=== PATIENT | male | born 1970 | race Two or more races ===

== ENCOUNTER 2023-07-01 11:03 | Emergency (ER) | payer OTHER, SELFPAY ==
[2023-07-01 11:06] VITALS: BP 137/66; PULSE 60; RESP 18; TEMP 36.2; O2SAT 99; BMI 25.4
[2023-07-01 11:37] VITALS: BP 125/75; PULSE 59; RESP 14; TEMP 36.9; O2SAT 97
--- NOTE | 2023-07-01 12:15 | ED.EYEPROB ---
HPI - Eye Problem General Chief complaint: Eye Problems Stated complaint: r eye issue Time Seen by Provider: 07/01/23 11:32 Source: patient Mode of arrival: ambulatory Limitations: no limitations History of Present Illness HPI Narrative: Patient is a 52-year-old male presenting to the emergency department with complaint of rash to face. States this is the 3rd day. Describes rash as pruritic as well as painful. Complains of erythema to right conjunctiva with watery drainage. Denies contact lens use. Denies any blurred vision or other visual changes. Report he has had shingles vaccine. Denies fevers, body ache or other symptoms. chief complaint: eye redness and other (rash) Onset (ago): day(s) Onset description: gradual Duration: constant Location: right eye Eye Symptoms: burning, redness, itching and discharge Place: home Mechanism: none Associated symptoms: none Treatments Prior to Arrival: none Related Data Previous Rx's Medication Instructions Recorded erythromycin 5 mg/gram (0.5 %) eye 1 appl ophthalmic-Right BID #3.5 07/01/23 ointment grams valacyclovir 1 gram tablet 1,000 mg PO TID #20 tabs 07/01/23 Allergies Allergy/AdvReac Type Severity Reaction Status Date / Time No Known Allergies Allergy Verified 07/01/23 11:10 Review of Systems Review of Systems: As per HPI. Yes all other systems are reviewed and are negative Constitutional: Constitutional: Reports as per HPI [facility] Social History Social History Advance Directives: No Advance Directives Information Provided: No Physical Exam Vital Signs: Vital Signs: Last Vital Signs Temp 98.4 F 07/01/23 11:37 Pulse 59 07/01/23 11:37 Resp 14 07/01/23 11:37 BP 125/75 07/01/23 11:37 Pulse Ox 97 07/01/23 11:37 O2 Del Method Room Air 07/01/23 11:37 BMI result Body Mass Index 25.4 Vital signs have been reviewed and appear to be correct. Blood pressure normal. Heart rate normal. Respiratory rate normal. Temperature normal. Oxygen saturation normal. Const: General: cooperative, healthy appearing and no acute distress Orientation/consciousness: oriented to person, oriented to place, oriented to time and patient oriented x3 Limitations: no limitations HEENT: Head: Yes normocephalic and Yes atraumatic Head images: 1. erythematous vesicles 2. clustered erythematous vesicles 3. erythematous vesicles Ears: external ears normal and EAC's normal (no lesions) General nose exam: Normal external nose present (no lesions) Face and sinus: Yes face symmetric Mouth: oropharynx normal and moist mucous membranes Throat: Yes uvula midline Eyes: Eyelids: Yes eyelids normal Conjunctivae: conjunctival abnormal right conjunctival injection diffuse and discharge other (watery) Corneas: corneas normal and fluorescein used Pupils: Equal, round and reactive pupils present EOM: EOMs intact bilaterally Neck: Neck: Yes normal visual inspection and Yes supple Resp: Effort & Inspection: normal respiratory effort and able to speak in complete sentences Auscultation: clear to auscultation bilaterally Cardio: Rate: regular rate Rhythm: regular rhythm Heart sounds: S1 normal heart sound present and S2 normal heart sound present GI: Palpation (GI): Soft to palpation and nontender Auscultation: normoactive bowel sounds : General: Yes no CVA tenderness Back/Spine/Pelvis: Back: no CVA tenderness Skin: General skin exam: elasticity normal and turgor normal Rashes: rashes noted vesicles right anterior forehead size (1cm), arrangement clustered, color red and distribution (V1) Neuro: General: oriented to person, oriented to place, oriented to time, patient oriented x3, moves all extremities, no focal motor deficits and CN's II-XI intact bilaterally Cranial nerves: Yes Equal, round and reactive pupils present Cognition (Neuro): normal cognition Extrem: General: Yes full ROM, Yes no pedal edema and Yes no calf tenderness Psych: Mental Status: mental status grossly normal Affect: normal affect Thought process: Normal thought process present Medications Administered Discontinued Medications Generic Name Dose Route Start Last Admin Trade Name Daysi PRN Reason Stop Dose Admin Fluorescein Sodium 1 strip 07/01/23 12:19 07/01/23 12:27 Fluorescein Sodium Strip EYE-RIGHT 07/01/23 12:20 1 strip ONCE ONE Administration Medical Decision Making Medical Decision Making [facility] Narrative: Patient is a 52-year-old male presenting to the emergency department with complaint of rash to face. On exam patient is awake, A+Ox3, VS WNL, afebrile, normal neurological exam without focal deficits, physical exam findings as above. Given reported symptoms and physical exam findings, initial differential includes herpes zoster vs herpes zoster opthalmicus, conjunctivitis. No dendritic lesions noted on [place] lamp exam with fluorescein stain. Case discussed with Dr. Decker and Dr. Hendrickson. Dr. Hendrickson recommends treatment with valacyclovir, as well as erythromycin ointment to lesion on right upper eyelid to prevent any secretions from entering the eye. Will refer patient to Dr. Hendrickson for follow up. Strict return precautions discussed at bedside as well as precautions around women, infants, the immunocompromised, or anyone who has not had chickenpox/shingles or vaccine. Patient verbalized understanding of and agreement with plan. Differential Diagnosis Differential Diagnoses: The differential diagnosis associated with the presentation includes As per MDM Consult Healthcare Provider Management of the patient was discussed with: Stock Unloader (Dr. Hendrickson, clinic supervisor) External Record Review External record reviewed: Inpatient record, Office record and Outpatient record Prescription Management I considered prescription management with: Antiviral Discharge Plan Discharge Clinical Impression: Herpes zoster Patient Disposition: Home, Self-Care Instructions: Shingles (ED) Additional Instructions: You were evaluated in the emergency department today for a rash to your face which is consistent with herpes zoster, also known as shingles. You are being prescribed antiviral medication called valacyclovir, please complete the full course of this medication as prescribed. You are also being prescribed erythromycin ointment to apply to the lesion on your right upper eyelid to prevent any drainage of fluid in to your eye. You should follow-up with , who is an clinic supervisor, as soon as possible. You should also follow-up with your primary care provider this week. Return to the emergency department if you develop blurred vision, double vision or any other changes to your vision, increasing eye pain, fevers 100.4? F or greater, chest pain, shortness of breath or any other concerning symptoms. Prescriptions: New valacyclovir 1 gram tablet 1,000 mg PO TID Qty: 20 0RF Rx Instructions: You were given the first dose in the emergency department today. Please take the next dose this evening. erythromycin 5 mg/gram (0.5 %) ointment 1 appl ophthalmic-Right BID Qty: 3.5 0RF Rx Instructions: Apply to lesion on right upper eyelid. Referrals: Arie Hendrickson [Physician] -
[2023-07-01] MEDS: Fluorescein Sodium STRIP 1 STRIP EYE-RIGHT (12:27)
[2023-07-01] MEDS: valACYclovir HCL 1,000 MG TABLET 1000 MG PO (13:11)
== END 2023-07-01 13:21 | disposition home or self-care (01) ==
PROVIDERS: Emergency Provider Student in an Organized Health Care Education/Training Program
DX: B02.30 Zoster ocular disease, unspecified (principal)
CPT/HCPCS: 99283

== ENCOUNTER 2024-04-08 08:27 | Emergency (ER) | payer OTHER, SELFPAY ==
--- NOTE | ~2024-04-08 | CT_ITS ---
EXAMINATION: CT ABDOMEN AND PELVIS WITH CONTRAST CLINICAL INFORMATION: Upper abdominal pain with question of pancreatic mass COMPARISON: None available. TECHNIQUE: Multidetector volumetric images were obtained from the superior aspect of the liver through the pubic symphysis following administration 85 mL of Omnipaque 350 intravenous contrast. Sagittal and coronal reformatted images were obtained on the technologist's workstation. Oral contrast: No This CT examination was performed using dose optimization techniques as appropriate, variously including the following: *Automated exposure control *Adjustment of mA and/or kV according to patient size (this includes techniques or standardized protocols for targeted exams where dose is matched to indication/reason for exam; i.e. extremities or head) *Use of iterative reconstruction technique DLP: 395 mGy-cm FINDINGS: LUNG BASES: The visualized lung bases are unremarkable aside from bronchial thickening. LIVER, GALLBLADDER, AND BILIARY TREE: The liver is normal in size, shape, and attenuation. Tiny millimeter sized hepatic hypodensities are seen likely cysts but are indeterminate because of their small size. No concerning focal hepatic lesion or biliary ductal dilatation is present. The gallbladder is completely contracted with no evidence of radiopaque gallstones or obvious pericholecystic inflammatory changes. PANCREAS: Unremarkable. SPLEEN: Unremarkable. ADRENAL GLANDS: Unremarkable. KIDNEYS AND URETERS: The kidneys are normal in size, shape, and attenuation. No hydronephrosis, hydroureter, or calculi seen. No perinephric stranding. BLADDER: Unremarkable. GASTROINTESTINAL TRACT: The small and large bowel are unremarkable. The appendix is unremarkable. ABDOMINAL WALL: No significant hernia is appreciated. LYMPH NODES: Normal. VASCULAR: Unremarkable. PELVIC VISCERA: There is mild to moderate BPH. Seminal vesicles appear normal OSSEOUS STRUCTURES: Unremarkable. CT/CT abdomen pelvis w IV con IMPRESSION: 1. A cause for the patient's upper abdominal pain has not been found. 2. Incidental note made of bronchial thickening, tiny hepatic hypodensities likely cysts, contracted gallbladder and BPH. Fleischner guidelines were followed. Electronically signed by: John Bedolla MD 04/08/2024 09:56 PM EDT
[2024-04-08 08:34] VITALS: BP 125/83; PULSE 62; RESP 18; TEMP 36.4; O2SAT 95; BMI 24.5
--- NOTE | 2024-04-08 08:37 | ECG_ITS ---
Test Reason : abd pain Blood Pressure : / mmHG Vent. Rate : 055 BPM Atrial Rate : 055 BPM P-R Int : 144 ms QRS Dur : 082 ms QT Int : 376 ms P-R-T Axes : 067 012 -22 degrees QTc Int : 359 ms Sinus bradycardia Possible Left atrial enlargement Septal infarct , age undetermined T wave abnormality, consider inferior ischemia Abnormal ECG No previous ECGs available Referred By: Generic ED Physician Electronically Signed By:TAMI MEHTA
[2024-04-08 09:07] LABS: MANUAL DIFF FLAG NO
[2024-04-08 09:11] LABS: Basophils Percent Auto 1.3 % (0-2); Eosinophils Absolute Auto 0.1 X10*3/uL (0.0-0.4); Eosinophils Percent Auto 3.2 % (0-4); Hemoglobin 16.4 g/dl (14.0-18.0); Imm Gran Abs Auto 0.01 X10*3/uL (0.00-0.03); Imm Gran Pct Auto 0.3 % (0.0-0.4); Lymphocytes Absolute Auto 1.2 X10*3/uL (1.2-4.9); Lymphocytes Percent Auto 39.7 % (20-40); Mean Corpuscular HGB Conc 34.9 g/dl (31.0-36.0); Mean Corpuscular Hemoglobin 30.9 pg (27.0-33.0); Mean Corpuscular Volume 88.7 fL (80.0-98.0); Mean Platelet Volume 9.8 fL (9.4-12.4); Monocytes Absolute Auto 0.4 X10*3/uL (0.1-1.2); Monocytes Percent Auto 12.6 % (2-11); Neutrophils Absolute Auto 1.3 x10*3/uL (2.0-8.3); Neutrophils Percent Auto 42.9 % (45-73); Platelet Count 209 X10*3/uL (160-400); White Blood Count 3.1 X10*3/uL (4.8-10.8)
[2024-04-08 09:26] LABS: Alanine Aminotransferase 26 U/L (0-40); Albumin Level 4.1 g/dL (3.5-5.0); Alkaline Phosphatase 72 U/L (39-117); Anion Gap 9 (12-20); Aspartate Amino Transferase 20 U/L (5-37); Bilirubin Direct 0.2 mg/dL (0.0-0.5); Bilirubin Total 0.6 mg/dL (0.0-1.0); Blood Urea Nitrogen 13 mg/dL (9-16); Calcium 9.6 mg/dL (8.4-10.2); Carbon Dioxide 28 mmol/L (22-29); Chloride 107 mmol/L (96-108); Creatinine Clr Calc Pharmacy 76.6; Estimated Glomerular Filt Rate > 60; Glucose Random 96 mg/dL (60-115); Lipase 31 U/L (8-78); Potassium 4.3 mmol/L (3.3-5.1); Sodium 140 mmol/L (135-145); Total Protein 6.6 g/dL (6.5-8.0)
[2024-04-08 19:21] VITALS: BP 135/75; PULSE 57; RESP 18; TEMP 36.2; O2SAT 99
--- NOTE | 2024-04-08 19:23 | ED_ITS ---
HPI - Abdominal Pain General Chief Complaint: Abdominal Pain Stated Complaint: Upper abd pain Time Seen by Provider: 04/08/24 19:21 Source: patient Mode of arrival: ambulatory Limitations: no limitations History of Present Illness ED Provider: wilfrid SLATER narrative: Patient no significant past medical history no history of peptic ulcer disease noticed pain in the upper abdomen area for last 1 week with bloating in his feels full does not feel hungry but no relation of the pain to the food no radiation of the pain no nausea no vomiting no diarrhea no family history of any pancreatic cancer Related Data Previous Rx's ?Medication ?Instructions ?Recorded erythromycin 5 mg/gram (0.5 %) eye 1 appl ophthalmic-Right BID #3.5 07/01/23 ointment grams valacyclovir 1 gram tablet 1,000 mg PO TID #20 tabs 07/01/23 pantoprazole 40 mg tablet,delayed 40 mg PO DAILY #30 tabs 04/08/24 release (Protonix) Allergies Allergy/AdvReac Type Severity Reaction Status Date / Time No Known Allergies Allergy Verified 04/08/24 08:36 Review of Systems Review of Systems Yes all other systems are reviewed and are negative PMFSH Social History Social History Smoked in Last 30 Days: No Use of substances other than those prescribed or required for medical reasons: No Advance Directives: No Advance Directives Information Provided: No Physical Exam ED Vital Signs: Vital Signs - 24 hr 04/08/24 08:34 04/08/24 19:21 04/08/24 22:56 Temperature 97.5 F 97.2 F 98.5 F Pulse Rate 62 57 56 Respiratory Rate 18 18 17 Blood Pressure 125/83 135/75 128/69 Pulse Oximetry 95 99 98 Oxygen Delivery Method Room Air Room Air Room Air 04/09/24 00:06 Temperature 98.5 F Pulse Rate 56 Respiratory Rate 17 Blood Pressure 128/69 Pulse Oximetry 98 Oxygen Delivery Method Room Air BMI result Body Mass Index 24.5 Appearance: Alert. Oriented X3. No acute distress. Eyes: No icterus or pallor ENT: Pharynx normal. Oral Mucosa moist Neck: Normal inspection. Neck supple. CVS: Normal heart rate and rhythm. Pulses normal. Respiratory: No respiratory distress. Equal air entry bilateral, no wheezing/rales/rhonchi Abdomen: Soft and tenderness in epigastric area no guarding no rebound tenderness Bowel sounds are present, no mass palpable, no CVA tenderness Skin: Skin warm and dry. Normal skin color. Normal skin turgor. Extremities: No lower extremity edema. No calf tenderness Neuro: Oriented X 3. Medical Decision Making Medical Decision Making [facility] Narrative: Patient with upper abdominal pain CT scan was done to rule out pancreatic mass which was negative will discharge patient home on H2 leonel likely patient has peptic ulcer disease advised to follow with blast furnace keeper helper Differential Diagnosis Differential Diagnoses: The differential diagnosis associated with the presentation includes Gallstones/pancreatic mass/pancreatitis/diverticulitis/hiatal hernia/peptic ulcer disease Admission/Observation Consideration of admission/observation: Escalation of care including admission/observation considered Lab Data [facility] Lab Attestation statement: I reviewed the patient's lab results. 04/08/24 09:03 04/08/24 09:03 Labs: Lab Results 04/08/24 Range/Units 09:03 WBC 3.1 L (4.8-10.8) X10*3/uL RBC 5.30 (4.60-5.80) X10*6/uL Hgb 16.4 (14.0-18.0) g/dl Hct 47.0 (42.0-52.0) % MCV 88.7 (80.0-98.0) fL MCH 30.9 (27.0-33.0) pg MCHC 34.9 (31.0-36.0) g/dl RDW 12.0 (11.0-16.0) % Plt Count 209 (160-400) X10*3/uL MPV 9.8 (9.4-12.4) fL Immature Gran % (Auto) 0.3 (0.0-0.4) % Neut % (Auto) 42.9 L (45-73) % Lymph % (Auto) 39.7 (20-40) % [place] % (Auto) 12.6 H (2-11) % Eos % (Auto) 3.2 (0-4) % Baso % (Auto) 1.3 (0-2) % Lymph # (Auto) 1.2 (1.2-4.9) X10*3/uL [place] # (Auto) 0.4 (0.1-1.2) X10*3/uL Eos # (Auto) 0.1 (0.0-0.4) X10*3/uL Baso # (Auto) 0.0 (0.0-0.2) X10*3/uL Abs Immat Gran (auto) 0.01 (0.00-0.03) X10*3/uL Absolute Neuts (auto) 1.3 L (2.0-8.3) x10*3/uL Absolute Nucleated RBC 0.000 (0.0-0.012) X10*3/uL Nucleated RBC % (auto) 0.0 (0.0-0.2) /100WBC Sodium 140 (135-145) mmol/L Potassium 4.3 (3.3-5.1) mmol/L Chloride 107 (96-108) mmol/L Carbon Dioxide 28 (22-29) mmol/L Anion Gap 9 L (12-20) BUN 13 (9-16) mg/dL Creatinine 0.97 (0.5-1.4) mg/dL Estim Creat Clear Calc 76.6 Estimated GFR > 60 Random Glucose 96 (60-115) mg/dL Calcium 9.6 (8.4-10.2) mg/dL Total Bilirubin 0.6 (0.0-1.0) mg/dL Direct Bilirubin 0.2 (0.0-0.5) mg/dL AST 20 (5-37) U/L ALT 26 (0-40) U/L Alkaline Phosphatase 72 (39-117) U/L Total Protein 6.6 (6.5-8.0) g/dL Albumin 4.1 (3.5-5.0) g/dL Lipase 31 (8-78) U/L Independent Interpretation I performed an independent interpretation of an: CT Scan Radiology Impression Discussion of test interpretation with radiology: I have reviewed the radiologist's reading. Radiologist Impression: [address] [address] [address] Scan Report Signed Patient: Michael Murphy MR#: [id number] : 1970 Acct:[id number] Age/Sex: 53 / M ADM Date: 04/08/24 Loc: HO.ED Attending Dr: Ordering Physician: Francesco Morris MD Date of Service: 04/08/24 Procedure(s): CT abdomen pelvis w IV con Accession Number(s): [id number] cc: Physician,None ; Francesco Morris MD~ EXAMINATION: CT ABDOMEN AND PELVIS WITH CONTRAST CLINICAL INFORMATION: Upper abdominal pain with question of pancreatic mass COMPARISON: None available. TECHNIQUE: Multidetector volumetric images were obtained from the superior aspect of the liver through the pubic symphysis following administration 85 mL of Omnipaque 350 intravenous contrast. Sagittal and coronal reformatted images were obtained on the technologist's workstation. Oral contrast: No This CT examination was performed using dose optimization techniques as appropriate, variously including the following: *Automated exposure control *Adjustment of mA and/or kV according to patient size (this includes techniques or standardized protocols for targeted exams where dose is matched to indication/reason for exam; i.e. extremities or head) *Use of iterative reconstruction technique DLP: 395 mGy-cm FINDINGS: LUNG BASES: The visualized lung bases are unremarkable aside from bronchial thickening. LIVER, GALLBLADDER, AND BILIARY TREE: The liver is normal in size, shape, and attenuation. Tiny millimeter sized hepatic hypodensities are seen likely cysts but are indeterminate because of their small size. No concerning focal hepatic lesion or biliary ductal dilatation is present. The gallbladder is completely contracted with no evidence of radiopaque gallstones or obvious pericholecystic inflammatory changes. PANCREAS: Unremarkable. SPLEEN: Unremarkable. ADRENAL GLANDS: Unremarkable. KIDNEYS AND URETERS: The kidneys are normal in size, shape, and attenuation. No hydronephrosis, hydroureter, or calculi seen. No perinephric stranding. BLADDER: Unremarkable. GASTROINTESTINAL TRACT: The small and large bowel are unremarkable. The appendix is unremarkable. ABDOMINAL WALL: No significant hernia is appreciated. LYMPH NODES: Normal. VASCULAR: Unremarkable. PELVIC VISCERA: There is mild to moderate BPH. Seminal vesicles appear normal OSSEOUS STRUCTURES: Unremarkable. CT/CT abdomen pelvis w IV con IMPRESSION: 1. A cause for the patient's upper abdominal pain has not been found. 2. Incidental note made of bronchial thickening, tiny hepatic hypodensities likely cysts, contracted gallbladder and BPH. Fleischner guidelines were followed. Electronically signed by: John Bedolla MD 04/08/2024 09:56 PM EDT Medications Administered Discontinued Medications Generic Name Dose Route Start Last Admin Trade Name Daysi PRN Reason Stop Dose Admin Famotidine 20 mg 04/08/24 20:10 04/08/24 20:56 Famotidine/Pf 20 Mg/2 Ml Vial IVPUSH 04/08/24 20:11 20 mg ONCE ONE Administration Sodium Chloride 1,000 mls @ 999 mls/hr 04/08/24 20:10 04/08/24 20:56 Ns IV 04/08/24 21:10 999 mls/hr .Q1H1M ONE Administration Iohexol 85 ml 04/08/24 20:47 04/08/24 20:48 Iohexol 350 Mg/Ml 100 Ml Infus..Btl IV 04/08/24 20:48 85 ml ONCE ONE Administration Discharge Plan Discharge Clinical Impression: Abdominal pain Patient Disposition: Home, Self-Care Instructions: Abdominal Pain (ED) Additional Instructions: Abdominal pain is likely from gastritis Your CT scan is negative for acute pathology Start taking Protonix as prescribed Follow with blast furnace keeper helper and PCP Prescriptions: New pantoprazole [Protonix] 40 mg tablet,delayed release (DR/EC) 40 mg PO DAILY Qty: 30 0RF No Action valacyclovir 1 gram tablet 1,000 mg PO TID Qty: 20 0RF Rx Instructions: You were given the first dose in the emergency department today. Please take the next dose this evening. erythromycin 5 mg/gram (0.5 %) ointment 1 appl ophthalmic-Right BID Qty: 3.5 0RF Rx Instructions: Apply to lesion on right upper eyelid. Referrals: Cindi Landers MD [Physician] - 2 weeks Interventions: ED Discharge Assessment Last Done: 04/09/24 00:06 Discharge Date/Time: 04/09/24 00:07 Print Language: Luxembourgish
[2024-04-08] MEDS: iohexoL 350 MG/ML 100 ML INFUS..BTL 85 ML IV (20:48)
[2024-04-08] MEDS: Famotidine/PF 20 MG/2 ML VIAL IVPUSH (20:56)
[2024-04-08] MEDS: 0.9 % Sodium Chloride 1,000 ML 999 ML IV (20:56)
[2024-04-08 22:56] VITALS: BP 128/69; PULSE 56; RESP 17; TEMP 36.9; O2SAT 98
[2024-04-09 00:06] VITALS: BP 128/69; PULSE 56; RESP 17; TEMP 36.9; O2SAT 98
== END 2024-04-09 00:07 | disposition home or self-care (01) ==
PROVIDERS: Emergency Provider Internal Medicine
DX: R10.10 Upper abdominal pain, unspecified (principal); Z79.899 Other long term (current) drug therapy
CPT/HCPCS: 36415; 74177; 80048; 80076; 83690; 85025; 93005; 96374; 99284; Q9967

== ENCOUNTER 2024-09-02 10:21 | Outpatient (AMB) | payer OTHER, SELFPAY ==
--- NOTE | 2024-09-02 10:26 | A.OFFPC_ITS ---
Vital Signs 09/02/24 10:28 Height 5 ft 3.39 in Weight 152 lb 8 oz BMI 26.7 BP 120/78 Blood Pressure Location Lt brachial Position Sitting Pulse 58 Pulse Source Pulse Oximeter Temp 97.9 F Temp Source Temporal Artery Scan Pulse Oximetry (%) 98 Oxygen Delivery Method Room Air Intake Visit Reasons: New Patient Intake Note: Patient is a new patient here to establish care for Wellness visit. Transferring care from Dr Harris ([facility]), and [facility]. Medical records have been requested and have not received. Steward/Stewardess Room Required: No Interventional Radiologist: Not Required per policy Accompanied by: Self / Same As Patient Allergies No Known Allergies Allergy (Verified 09/02/24 10:44) Medication List - Last Reconciled 09/02/24 by Bacilio Benoit PA-C No Known Home Meds Tobacco use date assessed: 09/02/24 Dental Screening Dental Screen Date: 09/02/24 Did you have a dental visit in the last 12 months?: Yes Did you have a dental problem in the last 6 months where you did not have access to dental care?: No Was dental information given to patient?: Patient has dentist HPI New Patient HPI Details Patient is a 54-year-old male here today for new patient visit. Patient's previous PCP was at [facility] group. Horacio--> reports he intermittently has upper abdominal pain. He attributes this to stress. She did get a CT of his abdomen last year which did not show any significant masses or intra-abdominal pathology. He denies having any constipation, diarrhea or GERD like symptoms. Vaccine : declines flu vac, Colonoscopy : Has had 2 colonoscoies thus far due to his family history of colon cancer. 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 1. Little interest or pleasure in doing things: not at all 2. Feeling down, depressed, or hopeless: not at all 3. Trouble falling or staying asleep, or sleeping too much: not at all 4. Feeling tired or having little energy: not at all 5. Poor appetite or overeating: not at all 6. Feeling bad about yourself - or that you are a failure or have let yourself or your family down: not at all 7. Trouble concentrating on things, such as reading the newspaper or watching television: not at all 8. Moving or speaking so slowly that other people could have noticed. Or the opposite - being so fidgety or restless that you have been moving around a lot more than usual: not at all 9. Thoughts that you would be better off or of hurting yourself in some way: not at all Total score: 0 Depression Screening Interpretation: Negative Depression Screening Done: Yes 47974 - PHQ-9 Billing: Yes Source: Developed by Drs. Daryn Lewis, Mignon Lees, Tylor Sin and colleagues, with an educational chad from [employer]. Thrive Questionnaire Date Thrive assessed: 09/02/24 I am a: Patient What is your living situation today?: I have a steady place to live Within the past 12 months, did the food you bought not last and you didn't have the money to get more?: I choose not to answer this question Within the past 12 months, did you worry whether your food would run out before you got money to buy more?: Never true Do you have trouble paying for medicines?: No Do you have trouble getting transportation to medical appointments?: No Do you have trouble paying your heating and electricity bill?: No Do you have trouble taking care of your child, family member or friend?: Yes Do you have trouble with day-to-day activities such as bathing, preparing meals, shopping, managing finances, etc.?: No Are you currently unemployed and looking for a job?: No Are you interested in more education?: Yes Please select the resources that you would like help with: None Currently or been in a relationship where the following occur: No concerns reported THRIVE Score: 0 AUDIT C Alcohol Use Questionnaire (AUDIT-C) 1. How often do you have a drink containing alcohol?: Never Total Score: 0 CARROLL-7 AMB Questionnaire CARROLL-7 Date CARROLL - 7 assessed: 09/02/24 Feeling nervous, anxious, or on edge: 0 = Not at all Not being able to stop or control worryin = Not at all Worrying too much about different things: 0 = Not at all Trouble relaxin = Not at all Being so restless that it is hard to sit still: 0 = Not at all Becoming easily annoyed or irritable: 0 = Not at all Feeling afraid as if something awful might happen: 0 = Not at all Total CARROLL-7 score (0-4 normal; 5-9 mild; 10-14 moderate; 15-21 severe): 0 Source: Developed by Drs. Daryn Lewis, Mignon Lees, Tylor Sin and colleagues, with an educational chad from [employer]. Review of Systems Const Denies headache(s) Eyes Denies loss of vision ENT Denies vertigo, Denies dizziness, Denies headache(s) and Denies sore throat Card Denies chest pain, Denies leg edema and Denies lightheadedness Resp Denies cough, Denies hemoptysis and Denies wheezing GI Denies abdominal pain, Denies melena, Denies constipation, Denies diarrhea and Denies vomiting Denies dysuria, Denies urinary frequency and Denies urinary urgency Musc Denies arthralgias, Denies joint swelling, Denies numbness and Denies tingling Neuro Denies Abnormal speech present, Denies behavioral changes, Denies vertigo, Denies dizziness, Denies headache(s), Denies loss of vision, Denies memory loss, Denies numbness and Denies tingling Psych Denies anxiety, Denies behavioral changes, Denies depression, Denies memory loss and Denies panic attacks Rich/Lymph Denies easy bleeding and Denies easy bruising Aller/Immun Denies wheezing Physical exam (Primary Care) Vital Signs: Last Vital Signs Temp 97.9 F 09/02/24 10:28 Pulse 58 09/02/24 10:28 BP 120/78 09/02/24 10:28 Pulse Ox 98 09/02/24 10:28 Oxygen Delivery Method Room Air 02/24/25 10:28 BMI result Body Mass Index 26.7 Tobacco/Smoking Status: Tobacco use Status Tobacco use date assessed 09/02/24 09/02/24 10:36 Patient Tobacco Use Status Never used Tobacco 09/02/24 10:36 e-Cigarette/Vaping Use Never Used 09/02/24 10:36 PHQ-9: PHQ-9 Score PHQ-9: Total score 0 09/02/24 10:50 Depression Screening Interpretation: Negative Thrive Assessment: Date of Thrive Assessment Date Thrive assessed 09/02/24 09/02/24 10:36 Currently or been in a relationship where the following occur: No concerns reported Const General: healthy appearing, no acute distress, alert and awake Nutritional Appearance: well nourished Orientation/consciousness: oriented to person, oriented to place and oriented to time HENMT Ears: TM's normal bilaterally General nose exam: Normal nasal mucous membranes and turbinates present Eyes Conjunctivae: conjunctivae normal Sclerae: sclerae normal Pupils: Equal, round and reactive pupils present Neck Neck: Yes no lymphadenopathy and Yes no JVD Thyroid: Thyroid normal Carotids: no bruits Resp Effort & Inspection: normal respiratory effort and not tachypneic Auscultation: no crackles, no rales, no rhonchi and no wheezes Cardio Rate: regular rate Rhythm: regular rhythm Heart sounds: no murmurs and normal S1 and S2 GI Palpation (GI): Soft to palpation, nontender, no hepatomegaly and no splenomegaly Auscultation: normal bowel sounds Skin General skin exam: no rashes or lesions noted and dry skin Neuro General: oriented to person, oriented to place and oriented to time Cranial nerves: Yes Equal, round and reactive pupils present Speech: No Abnormal speech present Gait exam (Neuro): Normal gait present Motor exam (neuro): no tremor noted Extrem Right upper extremity: full ROM Left upper extremity: full ROM Right lower extremity: full ROM; no edema Left lower extremity: full ROM; no edema Psych Mental Status: mental status grossly normal Speech and movement: Normal speech and movement present Affect: normal affect Attitude: cooperative Thought process: Normal thought process present Coding Level of Care Code New Pt Level 4 (10751) Diagnoses Intermittent epigastric abdominal pain R10.13 Family history of colon cancer in father Z80.0 Screening for diabetes mellitus (DM) Z13.1 Additional Codes PHQ-9 - 24258 - PHQ-9 Billing: Yes ([id number]) Assessment & Plan Assessment & Plan (1) Intermittent epigastric abdominal pain: Code(s): R10.13 - Epigastric pain Category: Medical Plan: As per HPI will trial dicyclomine as needed for abdominal pain. Patient's signs and symptoms could be related to an irritable bowel type syndrome. (2) Family history of colon cancer in father: Code(s): Z80.0 - Family history of malignant neoplasm of digestive organs Category: Medical Plan: Patient has a family history of father with colon cancer. Will try to set patient up with local music professor to discuss further colonoscopies and perhaps an endoscopy due to patient's chronic intermittent upper abdominal pain (3) Screening for diabetes mellitus (DM): Code(s): Z13.1 - Encounter for screening for diabetes mellitus Category: Medical Plan: As per HPI Orders: Orders US abdomen limited Today R10.13 - Epigastric pain Comprehensive [place]. Panel Fast Today Z13.1 - Encounter for screening for diabetes mellitus Prostate Specific Antigen Scr Today Z12.5 - Encounter for screening for ma lignant neoplasm of prostate Complete Blood Count no Diff Today Z13.1 - Encounter for screening for diabetes mellitus Referrals Gastroenterology Referral Z80.0 - Family history of malignant neoplasm of digestive organs Medications: New dicyclomine 20 mg PO BID 7 days PRN 14 tabs 0RF abdominal pain R10.13 - Epigastric pain Discontinued valacyclovir You were given the first dose in the emergency department today. Please take the next dose this evening. Discontinued Reason: Patient Completed Course 1,000 mg PO TID 20 tabs 0RF pantoprazole (Protonix) Discontinued Reason: Patient Completed Course 40 mg PO DAILY 30 tabs 0RF erythromycin Apply to lesion on right upper eyelid. Discontinued Reason: Patient Completed Course 1 appl ophthalmic-Right BID 3.5 grams 0RF
[2024-09-02 10:28] VITALS: BP 120/78; PULSE 58; TEMP 36.6; O2SAT 98; BMI 26.7
--- OUTSIDE RECORDS SUMMARY | 2024-09-02 11:35 | XMS_ITS | Referral Summary ---
Author Organization [facility] Address [address] [place] [address] Care Team Providers Care Casket Liner Name Role Phone Ear Pederson DO Primary Care Provider [phone] Allergies No known active allergies Medications aspirin chewable tablet 81 mg Chew and swallow 81 mg by mouth once a day. Active aspirin 81 mg EC tablet Take 81 mg by mouth once a day. 01/13/2021 Active Active Problems Problem Noted Date Diagnosed Date Rectal pain 04/24/2015 Chest pain, unspecified, other 06/19/2014 Social History Tobacco Use Types Packs/Day Years Used Date Smoking Tobacco: Never Smokeless Tobacco: Never Comments:: Alcohol Use Standard Drinks/Week Comments Never 0 (1 standard drink = 0.6 oz pur e alcohol) Sex and Gender Information Value Date Recorded Sex Assigned at Not on file Legal Sex Male 6:38 AM EDT Gender Identity Not on file Sexual Orientation Not on file Last Filed Vital Signs Vital Sign Reading Time Taken Comments Blood Pressure 120/65 03/08/2021 12:10 PM EDT Pulse 66 03/08/2021 12:10 PM EDT Temperature 36.2 ??C (97.1 ??F) 03/08/2021 11:53 AM E DT Respiratory Rate 22 03/08/2021 12:10 PM EDT Oxygen Saturation 98% 03/08/2021 12:10 PM EDT Inhaled Oxygen Concentration - - Weight 64.9 kg (143 lb) 03/03/2021 12:12 PM EDT Height 165.1 cm (5' 5 ) 03/03/2021 12:12 PM EDT Body Mass Index 23.8 03/03/2021 12:12 PM EDT Plan of Treatment Not on file Procedures * Due to [place] state law, this organization might not be sharing negative HIV tests. Procedure Name Priority Date/Time Associated Diagnosis Comments COLONOSCOPY 03/08/2021 from Last 3 Months or Most Recently Relevant to Health Maintenance Results * Due to [facility] law, this organization might not be sharing negative HIV tests. * COLONOSCOPY (03/08/2021) Narrative Procedure Note Adam Tong MD - 03/08/2021 11:31 AM EDT Gastroenterology Patient Name: Michael Murphy Procedure Date: 03/08/2021 11:31 AM Date of : 1970 Admit Type: Inpatient Age: 50 Room: Room 1 Gender: Male Note Status: Finalized Attending MD: Adam Tong MD Procedure: Colonoscopy Indications: Family history of colon cancer in a first-degree relative Providers: Adam Tong MD (Doctor) Referring MD: Era Pederson (Referring MD) Requesting Provider: Medicines: Propofol per Anesthesia Complications: No immediate complications. Estimated Blood Loss: Estimated blood loss: none. Procedure: Pre-Anesthesia Assessment: - Prior to the procedure, a History and Physical was performed, and patient medications and allergies were reviewed. The patient is competent. The risks andbenefits of the procedure and the sedation options and riskswere discussed with the patient. All questions were answered and informed consent was obtained. Patientidentification and proposed procedure were verified by the physicianin the procedure room. Mental Status Examination: alertand oriented. Airway Examination: normal oropharyngealairway and neck mobility. Respiratory Examination: clear to auscultation. CV Examination: normal. ASA Grade Assessment: II - A patient with mild systemic disease. After reviewing the risks and benefits, the patient was deemed in satisfactory condition to undergo theprocedure. The anesthesia plan was to use monitored anesthesiacare (MAC). Immediately prior to administration ofmedications, the patient was re-assessed for adequacy to receive sedatives. The heart rate, respiratory rate, oxygen saturations, blood pressure, adequacy of pulmonary ventilation, and response to care were monitored throughout the procedure. The physical status of the patient was re-assessed after the procedure. After I obtained informed consent, the scope was passed under direct vision. Throughout the procedure, the patient's blood pressure, pulse, and oxygen saturations were monitored continuously. The PCF-H190DL OLYMPUS [id number] was introduced through the anus and advanced to the cecum, identified by appendiceal orifice andileocecal valve. The bowel preparation used was Miralax. Thequality of the bowel preparation was good. The bowelpreparation used was Miralax. Findings: The perianal and digital rectal examinations were normal. The entire examined colon appeared normal. Impression: - The entire examined colon is normal. - No specimens collected. Recommendation: - Return to endoscopist in 5 years. Adam Tong MD 03/08/2021 11:50:48 AM This report has been signed electronically. Number of Addenda: 0 Note Initiated On: 03/08/2021 11:31 AM us Adam Tong MD PROVATION PROCEDURES Final Re sult from Last 3 Months or Most Recently Relevant to Health Maintenance [place] [address] [address] [address] [place] [id number] Advance Directives * Full Code (Latest Code Status on File) Date Activated Date Inactivated Comments 03/08/2021 11:01 AM 03/08/2021 2:51 PM Care Teams Casket Liner Relationship Specialty Start Date End Date Era Pederson DO PCP - General 10/22/20
--- OUTSIDE RECORDS SUMMARY | 2024-09-02 11:35 | XMS_ITS | Clinical Summary ---
Author Organization [facility] Address [address] [place] [address] Care Team Providers Care Rn Building Name Role Phone Era Pederson DO Primary Care Provider [phone] Allergies No known active allergies Medications aspirin chewable tablet 81 mg Chew and swallow 81 mg by mouth once a day. Active aspirin 81 mg EC tablet Take 81 mg by mouth once a day. 01/13/2021 Active Active Problems Problem Noted Date Diagnosed Date Rectal pain 04/24/2015 Chest pain, unspecified, other 06/19/2014 Family History Medical History Relation Name Comments Cancer Father Other Sister Family History of congenital heart disease Relation Name Status Comments Father Sister Social History Tobacco Use Types Packs/Day Years [...] 03/03/2021 12:12 PM EDT Plan of Treatment Health Maintenance Due Date Last Done Comments HIV Screening 1970 Hepatitis B Vaccines (1 of 3 - 19+ 3-dose series) 1989 DTaP,Tdap,and Td Vaccines (1 - Tdap) 1992 Pneumococcal Vaccine: 50+ Ye ars (1 of 1 - PCV) 2020 Zoster Vaccines (1 of 2) 2020 COVID-19 Vaccine (1 - 2023-2 5 season) 2024 Influenza Vaccine (#1) 2024 Alcohol/Substance Use Screening 07/10/2024 Colonoscopy 03/08/2026 03/08/2021, 02/09, 03/08/2021, Additional history exists RSV Vaccine (60+ years old a nd patients) (1 - 1-dose 75+ series) 2045 Procedures * Due to [place] [employer] law, this organization might not be sharing negative HIV tests. Procedure Name Priority Date/Time Associated Diagnosis Comments COLONOSCOPY 03/08/2021 from Last 3 Months or Most Recently Relevant to Health Maintenance Results * Due to [place] [employer] law, this organization might not be sharing [...] saturations were monitored continuously. The PCF-H190DL OLYMPUS [id number] was introduced through the anus and advanced [...] Most Recently Relevant to Health Maintenance Insurance [employer] Advance Directives * Full Code (Latest Code Status on File) Date Activated Date Inactivated Comments 03/08/2021 11:01 AM 03/08/2021 2:51 PM Care Teams Rn Building Relationship Specialty Start Date End Date Era Pederson DO PCP - General 10/22/20
--- OUTSIDE RECORDS SUMMARY | 2024-09-02 11:35 | XMS_ITS | Encounter Summary ---
Author Organization [facility] Address [address] [place] [address] Care Team Providers Care Cnc Machinist 2Nd Shift Name Role Phone Unavailable Primary Care Provider Unavailabl e Encounter Details Date Type Department Care Team (Late st Contact Info) Description 07/25/2024 Community Care Management [facility] [address] [place] [address] [facility], PhysicianMD Social History Tobacco Use Types Packs/Day Years Used Date Smoking Tobacco: Never Assessed Sex and Gender Information Value Date Recorded Sex Assigned at Not on file Legal Sex Male 6:03 PM EDT Gender Identity Not on file Sexual Orientation Not on file documented as of this encounter Plan of Treatment Not on file documented as of this encounter Visit Diagnoses Not on filedocumented in this encounter
--- OUTSIDE RECORDS SUMMARY | 2024-09-02 11:35 | XMS_ITS | Clinical Summary ---
Author Organization [facility] Address [address] [place] [address] Care Team Providers Care Picking Machine Operator Helper Name Role Phone Unavailable Primary Care Provider Unavailabl e Encounters Date Type Department Care Team Description 07/25/2024 Community Care Management [facility] [address] [place] [address] [facility] Physician York MD from Last 3 Months Social History Tobacco Use Types Packs/Day Years Used Date Smoking Tobacco: Never Assessed Sex and Gender Information Value Date Recorded Sex Assigned at Not on file Legal Sex Male 6:03 PM EDT Gender Identity Not on file Sexual Orientation Not on file Plan of Treatment Health Maintenance Due Date Last Done Comments CT Colonography 1970 Colonoscopy 1970 Colorectal Cancer Screening 1970 Depression Screening 1970 FIT DNA/Cologuard 1970 FIT 1970 FOBT 1970 HIV Screening 1970 Lipid Panel 1970 SDOH Screening 1970 Sigmoidoscopy 1970 Alcohol/Substance Use Screening 1982 Tobacco Screening 1982 Hepatitis C Screening 1988 DTaP/Tdap/Td Vaccines (1 - Tdap) 1989 Hepatitis B Vaccines (1 of 3 - 19+ 3-dose series) 1989 Pneumococcal Vaccine: 50+ Ye ars (1 of 1 - PCV) 2020 Zoster Vaccines (1 of 2) 2020 COVID-19 Vaccine (2023-2 5 season) 2024 Influenza Vaccine (#1) 2024 RSV Patients and Pa tients Aged 60 years or older (1 - 1-dose 75+ series) 2045 HIB Vaccines Aged Out No longer eligi ble based on patient's age to complete this topic HPV Vaccines Aged Out No longer eligi ble based on patient's age to complete this topic Hepatitis A Vaccines Aged Out No long er eligible based on patient's age to complete this topic IPV Vaccines Aged Out No longer eligi ble based on patient's age to complete this topic Meningococcal Vaccine Aged Out No julisa corinne eligible based on patient's age to complete this topic Pneumococcal Vaccine: Pediat rics (0 to 5 Years) and At-Risk Patients (6 to 49) Years) Aged Out No longer eligible b ased on patient's age to complete this topic RSV under 20 months Aged Out No longe r eligible based on patient's age to complete this topic Rotavirus Vaccines Aged Out No longer eligible based on patient's age to complete this topic
--- OUTSIDE RECORDS SUMMARY | 2024-09-02 11:35 | XMS_ITS | Data Portability ---
Author Organization [facility], , [facility] Address [address] [place] [address] Assessment Encounter Date Assessment Date Assessment LastModified by Organization Details LastModified Time 01/01/2021 01/01/2021 Educated patient about signs and symptoms in which to seek emergency medical attention or return for care. aattar Not available 01/01/2021 21:15:09 Plan of Treatment Reminders Order Date Submit Date Provider Last Modified By Organization Details Last Modified Time Details Appointments None recorded. Lab lipid panel, serum 2020 021 [employer] [facility], [address] [place] [address], [id number], 21:29:15 BMP, serum or plasma 2020 021 [employer] [facility], [address] [place] [address], [phone], 21:29:16 CBC 2020 021 [employer] [facility], [address] [place] [address], [phone], 21:29:16 Referral None recorded. Procedures None recorded. Surgeries None recorded. Imaging None recorded. Medication Orders atorvastati n 20 mg tablet 2020 021 [employer] [facility]armacy #[id number], [address] [place] [address], [id number], 16:49:02 aspirin 81 mg tablet,truong yed release 2020 021 [employer] [facility] #[id number], [address] [place] [address], [address], 09:55:39 Patient TargetsNo targets recorded. Patient Instructions Encounter Date Encounter Id Patient Instructions Last Modified By Organization Details Last Modified Time 01/01/2021 [id number] premature heartbeat: care instructions aattar Not available 01/01/2021 21:16:01 Jessica Dickson in collaboration with Micheal Pederson MD reviewed diagnostic, consultative, imaging findings with patient and or other external records as applicable. I explained to patient the nature of reported problems including detail risk and benefits of interventions, possible treatment(s), care instructions and or goals as indicated above. aattar Not available 01/01/2021 21:15:19 01/14/2021 [id number] Micheal Dickson MD , spend total time of 20 minutes performing the following: preparing to see the patient by review of diagnostic, consultative, imaging findings and or other external records as applicable. Obtaining and or reviewing separately obtained history. I explained to patient the nature of reported problems, examination findings including detail risk and benefits of interventions possible treatment(s), care instructions and or goals as indicated above. ,The patient was forewarned about common adverse affects of medications, possible drug and food interactions. Patient was advised to take medications as prescribed. The patient will contact me at [phone] if any symptoms or problems should occur.In the case of significant deterioration of the health contact 101. jtrister Not available 02/01/2021 09:55:53 01/19/2021 [id number] Micheal Dickson MD , spend total time of 20 minutes performing the following: preparing to see the patient by review of diagnostic, consultative, imaging findings and or other external records as applicable. Obtaining and or reviewing separately obtained history. I explained to patient the nature of reported problems, examination findings including detail risk and benefits of interventions possible treatment(s), care instructions and or goals as indicated above. ,The patient was forewarned about common adversed affects of medications, possible drug and food interactions. Patient was advised to take medications as prescribed. The patient will contact az at [phone] if any symptoms or problems should occur.In the case of significant deterioration of the health contact 911. jtrister Not available 02/02/2021 11:31:38 03/04/2021 [id number] Micheal Dickson MD , spend total time of 20 minutes performing the following: preparing to see the patient by review of diagnostic, consultative, imaging findings and or other external records as applicable. Obtaining and or reviewing separately obtained history. I explained to patient the nature of reported problems, examination findings including detail risk and benefits of interventions possible treatment(s), care instructions and or goals as indicated above. ,The patient was forewarned about common adversed affects of medications, possible drug and food interactions. Patient was advised to take medications as prescribed. The patient will contact me at [phone] if any symptoms or problems should occur.In the case of significant deterioration of the health contact 911. jtrister Not available 03/16/2021 12:34:33 04/02/2021 [id number] Micheal Dickson MD , spend total time of 20 minutes performing the following: preparing to see the patient by review of diagnostic, consultative, imaging findings and or other external records as applicable. Obtaining and or reviewing separately obtained history. I explained to patient the nature of reported problems, examination findings including detail risk and benefits of interventions possible treatment(s), care instructions and or goals as indicated above. ,The patient was forewarned about common adverse affects of medications, possible drug and food interactions. Patient was advised to take medications as prescribed. The patient will contact az at [phone] if any symptoms or problems should occur.In the case of significant deterioration of the health contact 911. jtrister Not available 04/13/2021 11:59:34 Reason for Referral None Reported. Results Created Date Observation Date Name Description Value Unit Range Abnormal Flag Note LastModifiedBy Organization Detail LastModifiedTime 01/16/20 21 01/15/2021 LIPID PANEL , STAND HERNAN cholesterol, total 130 mg/dL <200 normal Not Available [facility] [place] [facility] [address], [place], [address], 01/15/2021 21:29:15 01/16/20 21 01/15/2021 LIPID PANEL , STAND HERNAN HDL cholesterol 43 mg/dL > or = 40 normal Not Available [facility] [place] [facility] [address] [place], [place], [address], 01/15/2021 21:29:15 01/16/20 21 01/15/2021 LIPID PANEL , STAND HERNAN triglyceride s 67 mg/dL <150 normal Not Available [facility] [place] [facility] [address], [place], [address], 01/15/2021 21:29:15 01/16/20 21 01/15/2021 LIPID PANEL , STAND HERNAN LDL-choleste rol 73 mg/dL _(marvin c) normal Refer ence range : <100 Jorden able range <100 mg/dL for prima ry preve ntion ; <70 mg/dL for patie nts with CHD or diabe tic patie nts with > or = 2 CHD risk facto rs. LDL-C is now calcu lated using the Homa le-Hop kins calcu josh n, which is a valid ated novel zaki nava acy than the Fried jeramie equat ion in the estim ation of LDL-C . Homa COATES et al. WAGNER. 2013; 310(1 9): 2061- 2068 (http ://ed ucati on.Sara massey 2359 Medias. com/f aq/FA Q164) Not Available [facility] [place] [facility] [address] [place], [place], [address], 01/15/2021 21:29:15 01/16/20 21 01/15/2021 LIPID PANEL , STAND HERNAN chol/HDLC ratio 3.0 (calc ) <5.0 normal Not Available [facility] [address] [place], [place], [address], 01/15/2021 21:29:15 01/16/20 21 01/15/2021 LIPID PANEL , STAND HERNAN non HDL cholesterol 87 mg/dL _(marvin c) <130 normal For patie nts with diabe marga plus 1 major ASCVD risk facto r, treat ing to a non-H DL-C goal of <100 mg/dL (LDL- C of <70 mg/dL ) is consi jess winchester optio n. Not Available [facility] [place] [facility] [address], [place], [address], 01/15/2021 21:29:15 01/16/20 21 01/15/2021 LIPID PANEL , STAND HERNAN copy(ies) sent to: NIKKI CAMARGO R ACCOU N [address] [phone] Not Available [facility] [place] [facility] [address], [place], [address], 01/15/2021 21:29:15 01/16/20 21 01/15/2021 BASIC METAB OLIC PANEL glucose 96 mg/dL 65-99 normal Fasti ng refer ence inter brooke Not Available [facility] [place] [facility] [address], [place], [address], 01/15/2021 21:29:16 01/16/20 21 01/15/2021 BASIC METAB OLIC PANEL urea nitrogen (BUN) 11 mg/dL 7-25 normal Not Available [facility] [place] [facility] [address], [place], [address], 01/15/2021 21:29:16 01/16/20 21 01/15/2021 BASIC METAB OLIC PANEL creatinine 0.88 mg/dL 0.70-1 .33 normal For patie nts >49 years of age, the refer ence limit for Creat inine is appro ximat andrade 13% highe r for peopl e ident ified as Afric an-Am sujata n. Not Available [facility] [place] [facility] [address], [place], [address], 01/15/2021 21:29:16 01/16/20 21 01/15/2021 BASIC METAB OLIC PANEL eGFR non-afr. cuban 100 mL/mi n/1.7 3m2 > or = 60 normal Not Available [facility] [place] [facility] [address], [place], [address], 01/15/2021 21:29:16 01/16/20 21 01/15/2021 BASIC METAB OLIC PANEL eGFR 116 mL/mi n/1.7 3m2 > or = 60 normal Not Available [facility] [place] [facility] [address], [place], [address], 01/15/2021 21:29:16 01/16/20 21 01/15/2021 BASIC METAB OLIC PANEL BUN/creatini ne ratio NOT APPLIC ABLE (calc ) 6-22 Not Available [facility] [place] [facility] [address], [place], [address], 01/15/2021 21:29:16 01/16/20 21 01/15/2021 BASIC METAB OLIC PANEL sodium 138 mmol/ L 135-14 6 normal Not Available [facility] [place] [facility] [address], [place], [address], 01/15/2021 21:29:16 01/16/20 21 01/15/2021 BASIC METAB OLIC PANEL potassium 4.1 mmol/ L 3.5-5. 3 normal Not Available [facility] [place] [facility] [address], [place], [address], 01/15/2021 21:29:16 01/16/20 21 01/15/2021 BASIC METAB OLIC PANEL chloride 106 mmol/ L 98-110 normal Not Available [facility] [address], [place], [address], 01/15/2021 21:29:16 01/16/20 21 01/15/2021 BASIC METAB OLIC PANEL carbon dioxide 26 mmol/ L 20-32 normal Not Available [facility] [place] [facility] [address], [place], [address], 01/15/2021 21:29:16 01/16/20 21 01/15/2021 BASIC METAB OLIC PANEL calcium 8.6 mg/dL 8.6-10 .3 normal Not Available [facility] [place] [facility] [address], [place], [address], 01/15/2021 21:29:16 01/16/20 21 01/15/2021 BASIC METAB OLIC PANEL copy(ies) sent to: NIKKI FAROOQ N [address] [phone] Not Available [facility] [place] [facility] [address], [place], [address], 01/15/2021 21:29:16 01/16/20 21 01/15/2021 CBC (H/H, RBC, INDIC ES, WBC, PLT) white blood cell count 3.4 thous and/u L 3.8-10 .8 low Not Available [facility] [place] [facility] [address], [place], [address], 01/15/2021 21:29:16 01/16/20 21 01/15/2021 CBC (H/H, RBC, INDIC ES, WBC, PLT) red blood cell count 4.81 alex on/uL 4.20-5 .80 normal Not Available [facility] [place] [facility] [address], [place], [address], 01/15/2021 21:29:16 01/16/20 21 01/15/2021 CBC (H/H, RBC, INDIC ES, WBC, PLT) hemoglobin 15.0 g/dL 13.2-1 7.1 normal Not Available [facility] [place] [facility] [address], [place], [address], 01/15/2021 21:29:16 01/16/20 21 01/15/2021 CBC (H/H, RBC, INDIC ES, WBC, PLT) hematocrit 43.1 % 38.5-5 0.0 normal Not Available [facility] [place] [facility] [address], [place], [address], 01/15/2021 21:29:16 01/16/20 21 01/15/2021 CBC (H/H, RBC, INDIC ES, WBC, PLT) MCV 89.6 fL 80.0-1 00.0 normal Not Available [facility] [place] [facility] [address], [place], [address], 01/15/2021 21:29:16 01/16/20 21 01/15/2021 CBC (H/H, RBC, INDIC ES, WBC, PLT) MCH 31.2 pg 27.0-3 3.0 normal Not Available [facility] [place] [facility] [address], [place], [address], 01/15/2021 21:29:16 01/16/20 21 01/15/2021 CBC (H/H, RBC, INDIC ES, WBC, PLT) MCHC 34.8 g/dL 32.0-3 6.0 normal Not Available [facility] [place] [facility] [address], [place], [address], 01/15/2021 21:29:16 01/16/20 21 01/15/2021 CBC (H/H, RBC, INDIC ES, WBC, PLT) RDW 12.9 % 11.0-1 5.0 normal Not Available [facility] [address], [place], [address], 01/15/2021 21:29:16 01/16/20 21 01/15/2021 CBC (H/H, RBC, INDIC ES, WBC, PLT) platelet count 222 thous and/u L 140-40 0 normal Not Available [facility] [address], [place], [address], 01/15/2021 21:29:16 01/16/20 21 01/15/2021 CBC (H/H, RBC, INDIC ES, WBC, PLT) MPV 10.5 fL 7.5-12 .5 normal Not Available [facility] [place] [facility] [address], [place], [address], 01/15/2021 21:29:16 01/16/20 21 01/15/2021 CBC (H/H, RBC, INDIC ES, WBC, PLT) copy(ies) sent to: CENTR AL MASS IPA BOYE R ACCOU N [address] [phone] Not Available [facility] [address], [place], [address], 01/15/2021 21:29:16 12/05/19 21 12/04/2020 muna brower am No observ ation record ed. BARCODE Not Available 2020 17:20:35 12/26/19 21 12/25/2020 imagi ng/di bryson montes Study ID: [id number] [facility] [address] [place] [phone] Non- Invasi ve Cardio logy Labor[facility] torchante Garyt malachi winchester Echoca rdiogr am Final Report Name: FRANKY GAMINO DO Study Date: 2020 08:45 AMBP: 122/72 mmHg 1730 Ryan montes Locati on: [facility] : 1970 Accoun t Number : [id number] Height : 65 in Age: 50 yrs Gender : Male Weight : 144 lb Reason For Study: HYPERT ENSIVE HRT DIS:IN IT BSA: 1.7 m2 Orderi ng Physic neri: Micheal Nava Referr ing Physic neri: Micheal Nava Perfor med By: MD Helena Jeronimo Interp retati on Summar y A comple te two-di mensio nal transt horaci c echoca rdiogr am was perfor med (2D, M-mode , Dopple r and color flow Dopple r). The study was techni arden diffic ult. There is no compar cheryl study availa ble. Left ventri cular systol ic functi on is normal . Ejecti on Fracti on = 55-60% . No region al wall motion abnorm alitie s noted. There is border line concen tric left ventri cular hypert rophy. Left Ventri savanah The left ventri savanah is normal in size. There is border line concen tric left ventri cular hypert rophy. Left ventri cular systol ic functi on is normal . Ejecti on Fracti on = 55-60% . The transm itral spectr al Dopple r flow patter n is normal for age. No region al wall motion abnorm alitie s noted. Right Ventri savanah The right ventri savanah is normal in size and functi on. Atria The left atrial size is normal . Right atrial size is normal . There is no Dopple r eviden ce for an atrial septal defect . Mitral Valve The mitral valve is normal in struct ure and functi on. There is mild mitral regurg itatio n. Tricus pid Valve The tricus pid valve is not well visual ized, but is grossl y normal . There is mild tricus pid regurg itatio n. Pulmon macey Artery Systol ic Pressu re estima marga from tricus pid regurg itatio n jet veloci ty is 23 mms of Hg. Pulmon macey Artery Systol ic Pressu re estima marga assume a Right Atrial pressu re of 3 mm of Hg. Right ventri cular systol ic pressu re is normal . Aortic Valve The aortic valve is trilea flet. The aortic valve opens well. No aortic regurg itatio n is presen t. Pulmon ic Valve The pulmon ic valve is not well seen, but is grossl y normal . Trace pulmon ic valvul ar regurg itatio n. Great Vessel s The aortic root is normal size. The ascend ing aorta is normal in size. The pulmon macey artery is not well visual ized, but is probab ly normal size. Inferi or Vena Cava is normal sugges ting a normal right atrial pressu re. Perica rdium/ Pleura l There is no perica rdial effusi on. MMode/ 2D Measur ements Calcul ations RVDd: 2.8 cm LVIDd: 4.1 cm IVSd: 1.0 cm LVIDs: 2.6 cm LVPWd: 0.93 cm FS: 36.7 % Ao root diam: 2.9 cm EDV(Te ich): 75.8 ml Ao root area: 6.7 cm2 ESV(Te ich): 25.0 ml LA dimens ion: 3.2 cm asc Aorta Diam: 3.1 cm LVOT diam: 1.9 cm LVOT area: 2.9 cm2 LVLd ap4: 7.7 cm EF(MOD -sp2): 65.8 % EDV(MO D-sp4) : 69.0 ml LVLs ap4: 6.7 cm ESV(MO D-sp4) : 31.0 ml EF(MOD -sp4): 55.1 % SV(MOD -sp4): 38.0 ml LA Area AP2C: 14.1 cm2 LA Length : 4.3 cm LA Area AP4C: 12.1 cm2 LA Vol: 33.5 ml LA Vol Index: 19.5 ml/m2 Dopple r Measur ements Calcul ations MV E max biju: 72.1 cm/sec MV dec time: 0.23 sec MV A max biju: 58.7 cm/sec MV E/A: 1.2 Lat Peak E' Biju: 10.1 cm/sec Med Peak E' Biju: 7.0 cm/sec LV V1 max P.3 mmHg SV(LVO T): 55.6 ml LV V1 mean P.8 mmHg LV V1 max: 103.2 cm/sec LV V1 mean: 59.5 cm/sec LV V1 VTI: 19.3 cm TR max biju: 212.4 cm/sec E/Lat E': 7.0 TR max P.1 mmHg E/Med E': 10.1 Electr onical ly Signed By: Marcela recinos MD 2020 03:11 PM https: //[email or web address] us_Get Report /getRe port.a sp?Dave dyInst anceUI D= [id number] .[id number] 0618.5 [id number] .[id number]. [id number] modali ty=us ITS Report #: [id number] Orderi ng physic neri: Micheal king Other provid ers: Micheal king, Micheal king, , Micheal king, , , dtrister [facility] [address] [place] [address], [address], 01/13/2021 22:05:40 01/02/20 21 01/01/2021 imagi ng/di chellyos joss resul t No observ ation record ed. jtrister Not Available 2020 16:49:15 01/07/20 21 12/25/2020 imagi ng/di agnos tic resul t [facility] [address] [place] [address] [phone] PATIOLGA T: CAIN GAMINO REG REF/ 1730 [facility] : Non-In vasive Cardio logy Labora tory ___ DATE OF SERVIC E: 2020 NONINV ASIVE CARDIO LOGY STRESS TEST REPORT STUDY TYPE: This is an exerci se treadm ill test report . INDICA TION FOR TEST: Abnorm al EKG and chest discom fort. REFERR ING PHYSIC NERI AND PRIMAR Y CARE PHYSIC NERI: Dr. Micheal colbert SUPERV ISING PRACTI TIONER : SHEELA Zuñiga. INTERP RETING CARDIO LOGIST : Dr. Marcela rao NEL L PREDIC ROBERT HEART RATE: 170. TARGET HEART RATE: 146. TEST PROTOC OL: Shoaib Go. BASELI NE DATA: Baseli ne EKG, normal sinus rhythm . Baseli ne heart rate 58, baseli ne blood pressu re 123/80 , baseli ne oxygen satura tion 98% on room air. EXERCI SE TEST DATA: Exerci se time 11 minute s. Peak heart rate 146 repres enting 85% nel l predic robert heart rate. Peak blood pressu re 158/86 , METs achiev ed 11.5. EKG respon se, sinus tachyc ardia with up to [address] depres sions in the inferi or latera l leads. Sympto ms of angina , none. Arrhyt hmias, occasi onal PVCs. REASON FOR TEST TERMIN ATED: The patien t's fatigu e. Resolu tion of ST segmen ts 5 minute s into recove ry. CONCLU SIONS: 1. 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 2. Negati ve sympto ms of angina . 3. Approp riate heart rate and blood pressu re respon ses for degree of exerci se achiev ed. 4. Averag e to above averag e aerobi c capaci ty for age. 5. Jennings treadm ill score of 1, interm ediate cardio vascul ar risk. 6. I would consid er dobuta mine stress echoca rdiogr am or Persan aníbal myocar dial perfus ion study for furthe r evalua tion given asympt omatic EKG change s at high worklo ad. Electr onical ly Authen ticate d By: Marcela recinos MD 2020 02:09 P ____ Marcela recinos MD es DD: 2020 TD: 02:04 P DT: 2020 TT: 02:28 P Doc #: [id number] cc: MD Nicanor Dorado , SHEELA king M.D. Orderbeth spears physic neri: Other provid ers: Micheal king, Micheal king, , Micheal king, Marcela recinos, Nicanor triana , Micheal king rister [facility] [address] [place] [address], [address], 01/13/2021 22:05:40 01/07/20 21 12/25/2020 exerc ise stres s test No observ ation record ed. aattar Not Available 2020 16:55:03 01/08/20 21 12/25/2020 exerc ise stres s test No observ ation record ed. jtrister Not Available 2020 16:49:15 02/26/20 21 02/25/[address] perf yandel multi [facility] Dep[facility] Radiol ogy [address] [place] [address], [address] Name: CAIN GAMINO : 1730 Date of Servic e: [birth year] Acct Number : [id number] Order Number : [id number] Locati on: [facility] Report Number : [id number] Servic e: REG REF/ Reques ting Physic neri: Rishi Dean MD Catego ry: NUCLEA R MEDICI NE Exam: MYOCAR D PERF YANDEL MULTI Access ion #: [id number] VH Signs/ Sympto ms: CHEST PAIN Report Status : Sig jonah Myocar dial Perfus ion Imagin g with Stress Gated SPECT and Rest SPECT Imagin g. Isotop e: Tc-99m Tetrof abe; 27mCi stress and 9mCi rest doses. Proced ure: At rest, Tc-99m Tetrof abe was inject ed intrav enousl y and SPECT imagin g was perfor med. During exerci se, Tc-99m Tetrof abe was inject ed intrav enousl y and gated SPECT imagin g perfor med. Scinti graphi c Findin gs: Images obtain ed follow ing exerci se demons trate a normal patter n of myocar dial activi ty. Images obtain ed at rest demons trate a normal patter n of myocar dial activi ty. The ejecti on fracti on is 68 %. Region al wall motion is normal . The left ventri cular end diasto lic volume is 70ml. The transi ent ischem ic dilata tion index is 0.92. The lung heart ratio is 0.30. Impres venkat: There is no eviden ce of potent ially ischem ic or previo usly infarc robert myocar dium. Global left ventri cular functi on is normal . Region al wall motion is normal . The left ventri cular end-di astoli c volume is normal . The transi ent ischem ic dilata tion index is normal . The lung heart ratio is normal . Interp reting Cardio logist : Ron jones M.D., F.A.C. C. Date/T vignesh of Dictat ion: 1654 Radiol ogy Reside nt (if applic able): Approv ed By Attend ing Radiol ogist: Rishi Dean MD 9 Orderi ng physic neri: Ron jones Other provid ers: Ron jones, Ron jones, , Micheal king, , , jtrister [facility] [address] [place] [address], [address], 03/04/2021 16:49:15 03/04/20 21 03/01/2021 imagi ng/di agnos tic resul t [facility] [address] [address] PATIEN T: CAIN GAMINO REG REF/ 1730 [facility] : Non-In vasive Cardio logy Labora tory ___ DATE OF SERVIC E: 2020 EXERCI SE NUCLEA R MYOCAR DIAL PERFUS ION STUDY INDICA TION: Chest pain. REFERR ING PHYSIC NERI: Dr. Ross rti. SUPERV ISING: Jaylin . INTERP RETING : Dr. Ross rtbeth. MAXIMU M PREDIC ROBERT HEART RATE: 170. TARGET HEART RATE: 143. TEST PROTOC OL: Standa rd Donavan. BASELI NE DATA: Baseli ne electr ocardi ogram demons trates sinus rhythm with premat ure ventri cular contra ctions . Baseli ne heart rate 54, baseli ne blood pressu re 144/83 , baseli ne oxygen satura tion 99% on room air. EXERCI SE TEST DATA: The patien t exerci sed for 10 minute s and 30 second s of a standa rd Donavan protoc ol, 11.1 METs, attain ing a heart rate of 152 beats per minute (89% MPHR) and a blood pressu re of 180/80 mmHg termin ating for reason s of fatigu e. The patien t experi enced no chest pain. 2 mm of slight ly upslop ing ST-seg ment depres venkat were noted in multip le leads at peak exerci se. These change s resolv ed 20 second s follow ing the end of exerci se. No arrhyt hmia was noted. CONCLU SIONS: 1. No clinic al eviden ce of ischem ia in respon se to nel l treadm ill exerci se. 2. An equivo marvin EKG respon se was noted. Althou gh ST-seg ment depres venkat at 80 millis econds after the J-poin t at peak exerci se is consis tent with ischem ia, the confir mation of ST-seg ment depres venkat was slight ly upslop ing and resolu tion was prompt in recove ry. This reduce s the specif icity of the findin gs. 3. Normal aerobi c capaci ty. 4. Normal heart rate and blood pressu re respon ses. 5. Arrhyt hmia as descri bed. 6. Myocar dial perfus ion imagin g report ed separa tely. 7. Jennings treadm ill score 0. Electr onical ly Arcadio song By: Ron jones M.D. 2020 06:39 P ____ Ron jones M.D. es DD: 2020 TD: 08:51 A DT: 2020 TT: 09:07 A Doc #: [id number] 5 cc: Shaggy Connollyi regan bhatti: Other provid ers: Ron jones, Ron jones, , Micheal Singh r, Ron jones, , jtrister [facility] [address], [address], 04/03/2021 23:56:33 Result Notes None recorded. Problems No Known Problems Procedures Surgical History Date Name Laterality Status Provider Name and Address Organization Details Recorded Time 12/04/2020 ECG completed Manperet Leiva [address] [place] [address], [phone], [facility], 12/04/2020 16:58:29 Imaging Results Imaging Date Name Status LastModified by Organization Details LastModified Time 12/04/2020 electrocardiogram completed BARCODE Informa tion not available 12/04/2020 17:20:35 12/25/2020 imaging/diagnostic result completed dtrister [facility] [address], [address], 01/13/2021 22:05:40 01/01/2021 imaging/diagnostic result active Information not available 03/04/2021 16:49:15 12/25/2020 imaging/diagnostic result completed dtrister [facility] [address], [address], 01/13/2021 22:05:40 12/25/2020 exercise stress test completed aattar Info rmation not available 02/23/2021 16:55:03 12/25/2020 exercise stress test completed Info rmation not available 03/04/2021 16:49:15 02/25/2021 myocard perf yandel multi completed jtrister [facility] [address], [address], 03/04/2021 16:49:15 03/01/2021 imaging/diagnostic result completed jtrister [facility] [address], [address], 04/03/2021 23:56:33 Procedure Notes None recorded. Medical Equipment None Reported. Allergies No known drug allergies Medications Name Sig Start Date Stop Date Status Note LastModified by Organization Details LastModified Time Proctosol HC 2.5 % rectal cream with applicator 04/11 completed Not Available Not Available Not Available atorvastati n 20 mg tablet Take 1 tablet every day by oral route at bedtime for 30 days. 03/04 completed Not Available Not Available Not Available aspirin 81 mg tablet,truong yed release Take 1 tablet every day by oral route in the morning for 90 days. 2020 active Not Available Not Available Not Avai lable Pepto-Bismo l 262 mg tablet Take 2 tablets 3 times a day by oral route for 5 days. 08/07 completed Not Available Not Available Not Available docusate sodium 100 mg capsule 04/11 completed Not Available Not Available Not Available azelastine 137 mcg (0.1 %) nasal spray SPRAY 2 SPRAY(S) TWICE A DAY BY INTRANASA L ROUTE NEEDED FOR 30 DAYS. 06/24 completed Not Available Not Available Not Available loratadine 10 mg tablet TAKE 1 TABLET(S) EVERY DAY BY ORAL ROUTE FOR 30 DAYS. 06/24 completed Not Available Not Available Not Available azithromyci n 500 mg tablet TAKE 1 TABLET(S) EVERY DAY BY ORAL ROUTE FOR 3 DAYS. 06/24 completed Not Available Not Available Not Available Vitals Date Recorded Body height Heart rate Body temperature Body mass index (BMI) Body weight Oxygen saturation Oxygen saturation in Arterial blood by Pulse oximetry Provider Name and Address Organization Details Last Updated DateTime 1 165.1 cm 79 /min 97.9 [degF] 24.8 kg/m2 51805.2 6 g 96 % 96 % Micheal Pederson MD [address] [place], [address], [facility], 16:38:43 Date Recorded Body height Heart rate Body temperature Body mass index (BMI) Body weight Oxygen saturation Oxygen saturation in Arterial blood by Pulse oximetry Systolic blood pressure Diastolic blood pressure Provider Name and Address Organization Details Last Updated DateTime 1 165.1 cm 79 /min 98.2 [degF] 25 kg/m2 84437.8 6 g 96 % 96 % 102 mm[Hg] 68 mm[Hg] Micheal Pederson MD [address] [place], [address], [facility], 1 15:41:28 Date Recorded Body height Systolic blood pressure Diastolic blood pressure Provider Name and Address Organization Details Last Updated DateTime 01/19/2021 165.1 cm 130 mm[Hg] 80 mm[Hg] Micheal Pederson MD [address] [place], [address], [facility], 01/19/2021 17:01:27 Date Recorded Body mass index (BMI) Body weight Body temperature Heart rate Oxygen saturation Oxygen saturation in Arterial blood by Pulse oximetry Provider Name and Address Organization Details Last Updated DateTime 1 25.2 kg/m2 69512.1 7 g 97.4 [degF] 79 /min 96 % 96 % Era Pederson DO [address] [place], [address], [facility], 17:49:52 Date Recorded Body height Heart rate Body mass index (BMI) Body weight Body temperature Systolic blood pressure Diastolic blood pressure Provider Name and Address Organization Details Last Updated DateTime 1 165.1 cm 60 /min 24.8 kg/m2 39937.2 6 g 98 [degF] 138 mm[Hg] 90 mm[Hg] Micheal Pederson MD [address] [place], [address], [facility], 1 16:51:08 Date Recorded Body height Body mass index (BMI) Body weight Body temperature Heart rate Oxygen saturation Oxygen saturation in Arterial blood by Pulse oximetry Provider Name and Address Organization Details Last Updated DateTime 1 165.1 cm 25.1 kg/m2 28920.4 5 g 97.9 [degF] 60 /min 97 % 97 % Micheal Pederson MD [address] [place], [address], [facility], 1 16:41:43 Date Recorded Systolic blood pressure Diastolic blood pressure Provider Name and Address Organization Details Last Updated DateTime 04/02/2021 110 mm[Hg] 80 mm[Hg] Alanis Michaud [facility], 04/02/2021 17:15:53 Social History Question Answer Notes LastModified by Organizat ion Details LastModified Time Tobacco Smoking Status Never Smoker Not Available [employer] 04/24/2020 03:10:45 What Is Your Level Of Alcohol Consumption? None [id number] Information not available 04/24/2020 Have You Been To An Area Known To Be High Risk For COVID-19? No Information not available 01/14/2021 Are You Currently Employed? Yes [id number] Information not available 04/24/2020 HAVE YOU HAD A RECENT FEVER OF >100.4 F No Information not available 01/14/2021 DO YOU HAVE SHORTNESS OF BREATH OR TROUBLE BREATHING No Information not available 01/14/2021 DO YOU HAVE DRY COUGH, RUNNY NOSE OR SORE THROAT No Information not available 01/14/2021 DO YOU HAVE CHILLS? No Information not available 01/14/2021 DO YOU HAVE MUSCLE PAIN, BODY ACHES? No Information not available 01/14/2021 DO YOU HAVE HEADACHE? No Information not available 01/14/2021 HAVE YOU RECENTLY LOST SENSE OF SMELL OR TASTE No Information not available 01/14/2021 DO YOU HAVE ONSET OF NAUSEA OR VOMITING? No Information not available 01/14/2021 HAVE YOU BEEN IN CONTACT WITH SOMEONE THAT TESTED POSITIVE FOR COVID19? No Information not available 01/14/2021 ARE YOU AWAITING COVID19 TEST RESULTS? No Information not available 01/14/2021 HAVE YOU TRAVELED OUTSIDE THE STATE OR COUNTRY IN THE PAST WEEKS? No Information not available 01/14/2021 Marital Status Informatio n not available 04/11/2016 What Was The Date Of Your Most Recent Tobacco Screening? 08/07/2017 [id number] Information not available 04/24/2020 How Many Children Do You Have? 2 [id number] Information not available 04/24/2020 Sex: Unknown Functional Status None recorded. Mental Status None recorded. Family History Relationship Description Onset Age of this Age Resolved Age Notes LastModified by Organization Details LastModified Time Father Malignant neoplastic disease 60 60 jtrister Not available 2015 13:23:51 Medical History Condition Response Hypertension Past Encounters Encounter ID Performer Location Encounter Start Date Encounter Closed Date Diagnosis/Indication Diagnosis SNOMED-CT Code Diagnosis ICD10 Code Diagnosis Note [id number] Micheal Pederson MD [address] [address] 04/11/2016 11:00:35 04/11/2016 12:08:08 Abdominal pain 09185175 R10.9 [id number] Micheal Pederson MD [address] [address] 05/02/2016 08:11:28 05/02/2016 08:36:53 Leukopenia 03141548 D72.819 [id number] [facility] [address] [place] [address] 06/15/2016 08:36:45 06/15/2016 09:03:40 Diarrhea 63393036 R19.7 [id number] Shonna Rosales [address] [address] 08/07/2017 15:36:55 08/07/2017 15:56:29 Rhinitis 59918048 J00 Otitis media 22991656 H6 6.91 [id number] Micheal Pederson MD [address] [address] 06/24/2019 14:24:21 06/24/2019 15:26:33 Adult health examination 004692015 Z00.01 Pain in th oracic spine 881851678 M54.89 Left flank pain 31243335 9 R10.9 [id number] Micheal Pederson MD [facility] [address] [place] [address] 08/12/2019 08:19:06 08/12/2019 08:57:22 Chronic back pain 829651629 M54.9 Skin lesion 92002494 L98 .9 [id number] Micheal Pederson MD [address] [address] 12/04/2020 16:46:17 12/04/2020 17:06:20 Benign essential hypertension 9873436 I10 Electrocar diogram abnormal 384665562 R94.31 [id number] JESSICA VACAKETAN [address] [address] 01/01/2021 16:30:48 01/01/2021 16:58:25 Ventricular premature complex 533760395 I49.3 Acute finding, stable. Asymptomat ic.Will obtain results for ETT.F/u in 3 months or sooner as needed. [id number] Micheal Pederson MD [address] [address] 01/14/2021 15:21:12 01/14/2021 16:06:46 Coronary arteriosclerosis 87869213 I25.10 [id number] Micheal Pederson MD [address] [address] 01/19/2021 16:47:30 01/19/2021 17:03:59 Coronary arteriosclerosis 39800547 I25.10 [id number] Micheal Pederson MD [address] [address] 03/04/2021 16:07:31 03/04/2021 17:26:13 Atypical chest pain 192023568 R07.89 The following dietary and life style changes are recommende d for you:Eat no more than 30-40 grams of carbohydra marga per day in the form of green vegetables (about 10-12 cups and 2 handful of berries per day.Whole Lemon or whole [place] per day are good for you.These vegetables , fruits and berries are high in Vitamin C and low on sugar- are essential for weight loss and improvemen t of metabolism . Use lemon juice, olive oil, pepper and salt instead of bottled dressings. You may have 1-2 eggs/day. Eat meat, poultry and fish. Seafood OK, unless you have an allergy.No dairy products.B lack coffee and tea are ok. Nut milks are OK. Green teas are very good for your health, but follow brewing instructio n.Avoid juices, soda (including diet ),ar tificial sugars, MSG.No chewing gums.Starc hes:Very small amount of rice, buckwheat or other non-gluten seeds and grains.Smo duyen and Alcohol are very harmful for you.Add to your diet Cod Liver oil and Flaxseed oil 1 table spoon of each.Drink plenty of fresh spring water.Walk as much as you can tolerate, but do not overdue. Too much exercises, especially if you are not physically prepared could be harmful. Slow motion weight bearing exercises are excellent choice. Small dumbbells will be very effective. But do these exercises very slowly. Walk 1-3 miles daily,Weig ht bearing exercises. [id number] Micheal Pederson MD [address] [address] 04/02/2021 16:02:03 04/02/2021 17:03:26 Atypical chest pain 744982442 R07.89 The following dietary and life style changes are recommende d for you:Eat no more than 30-40 grams of carbohydra marga per day in the form of green vegetables (about 10-12 cups and 2 handful of berries per day.Whole Lemon or whole [place] per day are good for you.These vegetables , fruits and berries are high in Vitamin C and low on sugar- are essential for weight loss and improvemen t of metabolism . Use lemon juice, olive oil, pepper and salt instead of bottled dressings. You may have 1-2 eggs/day. Eat meat, poultry and fish. Seafood OK, unless you have an allergy.No dairy products.B lack coffee and tea are ok. Nut milks are OK. Green teas are very good for your health, but follow brewing instructio n.Avoid juices, soda (including diet ),ar tificial sugars, MSG.No chewing gums.Star hes:Very small amount of rice, buckwheat or other non-gluten seeds and grains.Smo duyen and Alcohol are very harmful for you.Add to your diet Cod Liver oil and Flaxseed oil 1 table spoon of each.Drink plenty of fresh spring water.Walk as much as you can tolerate, but do not overdue. Too much exercises, especially if you are not physically prepared could be harmful. Slow motion weight bearing exercises are excellent choice. Small dumbbells will be very effective. But do these exercises very slowly. Walk 1-3 miles daily,Weig ht bearing exercises. Mixed hyperlipidemia 267 385409 E78.2 Health Concerns Section Related Observation LastModified by Organization Detai ls LastModified Time None Recorded Concern Status LastModified by Organization Details LastModified Time None Recorded Advance Directives Directive None Recorded Payers Encounter Date Sequence Insurance Name Policy Number Policy Martin Covered Member ID Martin Member ID Guarantor Name 01/01/2021 1 [facility] [employer] - TOGETHER (MEDICAID HMO) [id number] Michael Murphy [id number] 1 Michael Murphy 01/14/2021 1 [facility] [employer] - TOGETHER (MEDICAID HMO) [id number] Michael Murphy [id number] 1 Michael Murphy 01/19/2021 1 [facility] [employer] - TOGETHER (MEDICAID HMO) [id number] Michael Murphy [id number] 1 Michael Murphy 03/04/2021 1 [facility] [employer] - TOGETHER (MEDICAID HMO) [id number] Michael Murphy [id number] 1 Michael Murphy 04/02/2021 1 [facility] [employer] - TOGETHER (MEDICAID HMO) [id number] Michael Murphy [id number] 1 Michael Murphy Notes Date Note Type Note Provider Name and Address Organization Details Recorded Time 01/01/2021 text/html Patient here for f/u after going to ER for uncontrolled HTN. He was found to have HTN crisis when getting his COVID vaccine at the pharmacy.He was seen by Dr. Pederson for f/u and found to have PVCs on EKG. He was referred for ETT and ECHO. Both of which were completed via patient.I have reviewed the ECHO however no results for the ETT. Today his BP is controlled in office.He reports palpitations/chest discomfort about once a year. Reports an asymptomatic status today. No SOB, dyspnea, edema, dizziness, syncope. [facility] 01/01/2021 21:16:06 01/14/2021 text/html There is a histo ry of following medical problems:history of coronary arteriosclerosis; Positive abnormal cardiac evaluation. Micheal Pederson MD [address] [place], [address], [facility], 02/01/2021 09:56:08 01/19/2021 text/html There is a histo ry of following medical problems:Follow up visit for stable CAD;Scheduled visit with strap buckler machine;Resul ts of laboratory tests were reviewed and discussed with patient. Micheal Pederson MD [address] [place], [address], [facility], 02/02/2021 11:31:42 03/04/2021 text/html There is a histo ry of following medical problems:pt reports no complaints today; Results of clinical examination and available diagnostic tests were discussed with patient.cardiac testing are normal; Laboratory data are normal as well. Micheal Pederson MD [address] [place], [address], [facility], 03/16/2021 12:34:40 04/02/2021 text/html There is a histo ry of following medical problems:Patient feels well; Results of consultative report, laboratory tests and imaging studies were reviewed and discussed with patient Micheal Pederson MD [address] [place], [address], [facility], 04/13/2021 11:59:39
== END 2024-09-02 11:07 | disposition home or self-care (01) ==
PROVIDERS: Visit Provider Physician Assistant
DX: R10.13 Epigastric pain (principal); Z80.0 Family history of malignant neoplasm of digestive organs; Z13.1 Encounter for screening for diabetes mellitus

== ENCOUNTER → 2024-09-02 10:21 | Outpatient (BNVA) | payer OTHER, SELFPAY | PROVIDERS: Visit Provider Physician Assistant | DX: R10.13 Epigastric pain (principal); Z80.0 Family history of malignant neoplasm of digestive organs | CPT/HCPCS: 96127 ==

== ENCOUNTER 2024-09-13 07:28 | Outpatient (REF) | payer OTHER, SELFPAY ==
--- NOTE | ~2024-09-13 | XR_ITS ---
EXAMINATION: XR RIBS, LEFT CLINICAL INFORMATION: R07.81 - Pleurodynia COMPARISON: None available. TECHNIQUE: 3 views of the left ribs were obtained. A marker has been placed along the right lower ribs FINDINGS: Multiple views of right ribs reveal no visible fracture or bony abnormality. The soft tissues are normal. XR/XR ribs LT 2V IMPRESSION: Unremarkable right rib exam.. Electronically signed by: Marcos Sher MD 09/13/2024 09:29 AM NAEEM
--- OUTSIDE RECORDS SUMMARY | 2024-09-13 08:45 | XMS_ITS | Encounter Summary ---
Author Organization [employer] [facility] Address [address] [place] [address] Care Team Providers Care District Loss Prevention Manager Name Role Phone Unavailable Primary Care Provider Unavailabl e Encounter Details Date Type Department Care Team (Late st Contact Info) Description 07/25/2024 Community Care Management [facility] [address] [place] [address] [facility] Link, PhysicianMD Social History Tobacco Use [...]
--- OUTSIDE RECORDS SUMMARY | 2024-09-13 08:45 | XMS_ITS | Clinical Summary ---
Author Organization [employer] [facility] Address [address] [place] [address] Care Team Providers Care Flat Knitter Helper Name Role Phone Unavailable Primary Care Provider Unavailabl e Encounters Date Type Department Care Team Description 07/25/2024 Community Care Management [facility] [address] [place] [address] [facility] Physician York MD from Last 3 [...]
--- OUTSIDE RECORDS SUMMARY | 2024-09-13 08:45 | XMS_ITS | Data Portability ---
Author Organization [facility], , [facility] Address [address] [place] [address] Assessment Encounter Date Assessment Date Assessment LastModified by Organization Details LastModified Time 01/01/2021 01/01/2021 Educated patient about signs and symptoms in which to seek emergency medical attention or return for care. aattar Not available 01/01/2021 21:15:09 Plan of Treatment Reminders Order Date Submit Date Provider Last Modified By Organization Details Last Modified Time Details Appointments None recorded. Lab lipid panel, serum 2020 021 [employer] [facility], [address] [place] [address], [phone], 21:29:15 BMP, serum or plasma 2020 021 [employer] [facility], [address] [place] [address], [phone], 21:29:16 CBC 2020 021 [employer] [facility], [address] [place] [address], [phone], 21:29:16 Referral None recorded. Procedures None recorded. Surgeries None recorded. Imaging None recorded. Medication Orders atorvastati n 20 mg tablet 2020 021 [employer] [id number], [address] [place] [address], [address], 16:49:02 aspirin 81 mg tablet,truong yed release 2020 021 [employer] [facility][id number], [address] [place] [address], [address], 09:55:39 Patient TargetsNo targets recorded. Patient Instructions Encounter Date Encounter Id Patient Instructions Last Modified By Organization Details Last Modified Time 01/01/2021 [id number] premature heartbeat: care instructions aattar Not available 01/01/2021 21:16:01 Jessica Dickson in collaboration with Micheal Pederson MD reviewed diagnostic, consultative, imaging findings with patient and or other external records as applicable. I explained to patient the nature of reported problems including detail risk and benefits of interventions, possible treatment(s), care instructions and or goals as indicated above. aattar Not available 01/01/2021 21:15:19 01/14/2021 [id number] Micheal Dickson MD , spend total time [...] prescribed. The patient will contact me at [phone] if any symptoms or problems should occur.In the case of significant deterioration of the health contact 961. jtrister Not available 02/01/2021 09:55:53 01/19/2021 [id number] Micheal Dickson MD , spend total time [...] prescribed. The patient will contact az at [phone] if any symptoms or problems should occur.In the case of significant deterioration of the health contact 911. jtrister Not available 02/02/2021 11:31:38 03/04/2021 [id number] Micheal Dickson MD , spend total time [...] prescribed. The patient will contact me at [phone] if any symptoms or problems should occur.In the case of significant deterioration of the health contact 911. jtrister Not available 03/16/2021 12:34:33 04/02/2021 [id number] Micheal Dickson MD , spend total time [...] prescribed. The patient will contact az at [phone] if any symptoms or problems should occur.In the case of significant deterioration of the health contact 911. jtrister Not available 04/13/2021 11:59:34 Reason for Referral None Reported. Results Created Date Observation Date Name Description Value Unit Range Abnormal Flag Note LastModifiedBy Organization Detail LastModifiedTime 01/16/20 21 01/15/2021 LIPID PANEL , STAND HERNAN cholesterol, total 130 mg/dL <200 normal Not Available [facility] [place] [facility] [address], [place], [address], 01/15/2021 21:29:15 01/16/20 21 01/15/2021 LIPID PANEL , STAND HERNAN HDL cholesterol 43 mg/dL > or = 40 normal Not Available [facility] [place] [facility] [address] [place], [place], [address], 01/15/2021 21:29:15 01/16/20 21 01/15/2021 LIPID PANEL , STAND HERNAN triglyceride s 67 mg/dL <150 normal Not Available [facility] [place] [facility] [address], [place], [address], 01/15/2021 21:29:15 01/16/20 21 01/15/2021 LIPID PANEL [...] 2061- 2068 (http ://ed ucati on.Sara massey [employer]s. com/f aq/FA Q164) Not Available [facility] [place] [facility] [address] [place] [address], [place], [address], 01/15/2021 21:29:15 01/16/20 21 01/15/2021 LIPID PANEL , STAND HERNAN chol/HDLC ratio 3.0 (calc ) <5.0 normal Not Available [facility] [address] [place], [place], [address], 01/15/2021 21:29:15 01/16/20 21 01/15/2021 LIPID PANEL , STAND HERNAN non HDL cholesterol 87 mg/dL _(marvin c) <130 normal For patie nts with diabe marga plus 1 major ASCVD risk facto r, treat ing to a non-H DL-C goal of <100 mg/dL (LDL- C of <70 mg/dL ) is consi jess winchester optio n. Not Available [facility] [place] [facility] [address], [place], [address], 01/15/2021 21:29:15 01/16/20 21 01/15/2021 LIPID PANEL , STAND HERNAN copy(ies) sent to: NIKKI CAMARGO R ACCOU N [address] [phone] Not Available [facility] [place] [facility] [address], [place], [address], 01/15/2021 21:29:15 01/16/20 21 01/15/2021 BASIC METAB OLIC PANEL glucose 96 mg/dL 65-99 normal Fasti ng refer ence inter brooke Not Available [facility] [place] [facility] [address], [place], [address], 01/15/2021 21:29:16 01/16/20 21 01/15/2021 BASIC METAB OLIC PANEL urea nitrogen (BUN) 11 mg/dL 7-25 normal Not Available [facility] [place] [facility] [address], [place], [address], 01/15/2021 21:29:16 01/16/20 21 01/15/2021 BASIC METAB OLIC PANEL creatinine 0.88 mg/dL 0.70-1 .33 normal For patie nts >49 years of age, the refer ence limit for Creat inine is appro ximat andrade 13% highe r for peopl e ident ified as Afric an-Am sujata n. Not Available [facility] [place] [facility] [address], [place], [address], 01/15/2021 21:29:16 01/16/20 21 01/15/2021 BASIC METAB OLIC PANEL eGFR non-afr. burmese 100 mL/mi n/1.7 3m2 > or = 60 normal Not Available [facility] [place] [facility] [address], [place], [address], 01/15/2021 21:29:16 01/16/20 21 01/15/2021 BASIC METAB OLIC PANEL eGFR 116 mL/mi n/1.7 3m2 > or = 60 normal Not Available [facility] [place] [facility] [address], [place], [address], 01/15/2021 21:29:16 01/16/20 21 01/15/2021 BASIC METAB OLIC PANEL BUN/creatini ne ratio NOT APPLIC ABLE (calc ) 6-22 Not Available [facility] [place] [facility] [address], [place], [address], 01/15/2021 21:29:16 01/16/20 21 01/15/2021 BASIC METAB OLIC PANEL sodium 138 mmol/ L 135-14 6 normal Not Available [facility] [place] [facility] [address], [place], [address], 01/15/2021 21:29:16 01/16/20 21 01/15/2021 BASIC METAB OLIC PANEL potassium 4.1 mmol/ L 3.5-5. 3 normal Not Available [facility] [place] [facility] [address], [place], [address], 01/15/2021 21:29:16 01/16/20 21 01/15/2021 BASIC METAB OLIC PANEL chloride 106 mmol/ L 98-110 normal Not Available [facility] [address], [place], [address], 01/15/2021 21:29:16 01/16/20 21 01/15/2021 BASIC METAB OLIC PANEL carbon dioxide 26 mmol/ L 20-32 normal Not Available [facility] [place] [facility] [address], [place], [address], 01/15/2021 21:29:16 01/16/20 21 01/15/2021 BASIC METAB OLIC PANEL calcium 8.6 mg/dL 8.6-10 .3 normal Not Available [facility] [place] [facility] [address], [place], [address], 01/15/2021 21:29:16 01/16/20 21 01/15/2021 BASIC METAB OLIC PANEL copy(ies) sent to: NIKKI FAROOQ N [address] [phone] Not Available [facility] [place] [facility] [address], [place], [address], 01/15/2021 21:29:16 01/16/20 21 01/15/2021 CBC (H/H, RBC, INDIC ES, WBC, PLT) white blood cell count 3.4 thous and/u L 3.8-10 .8 low Not Available [facility] [place] [facility] [address], [place], [address], 01/15/2021 21:29:16 01/16/20 21 01/15/2021 CBC (H/H, RBC, INDIC ES, WBC, PLT) red blood cell count 4.81 alex on/uL 4.20-5 .80 normal Not Available [facility] [place] [facility] [address], [place], [address], 01/15/2021 21:29:16 01/16/20 21 01/15/2021 CBC (H/H, RBC, INDIC ES, WBC, PLT) hemoglobin 15.0 g/dL 13.2-1 7.1 normal Not Available [facility] [place] [facility] [address], [place], [address], 01/15/2021 21:29:16 01/16/20 21 01/15/2021 CBC (H/H, RBC, INDIC ES, WBC, PLT) hematocrit 43.1 % 38.5-5 0.0 normal Not Available [facility] [place] [facility] [address], [place], [address], 01/15/2021 21:29:16 01/16/20 21 01/15/2021 CBC (H/H, RBC, INDIC ES, WBC, PLT) MCV 89.6 fL 80.0-1 00.0 normal Not Available [facility] [place] [facility] [address], [place], [address], 01/15/2021 21:29:16 01/16/20 21 01/15/2021 CBC (H/H, RBC, INDIC ES, WBC, PLT) MCH 31.2 pg 27.0-3 3.0 normal Not Available [facility] [place] [facility] [address], [place], [address], 01/15/2021 21:29:16 01/16/20 21 01/15/2021 CBC (H/H, RBC, INDIC ES, WBC, PLT) MCHC 34.8 g/dL 32.0-3 6.0 normal Not Available [facility] [place] [facility] [address], [place], [address], 01/15/2021 21:29:16 01/16/20 21 01/15/2021 CBC (H/H, RBC, INDIC ES, WBC, PLT) RDW 12.9 % 11.0-1 5.0 normal Not Available [facility] [address], [place], [address], 01/15/2021 21:29:16 01/16/20 21 01/15/2021 CBC (H/H, RBC, INDIC ES, WBC, PLT) platelet count 222 thous and/u L 140-40 0 normal Not Available [facility] [address], [place], [address], 01/15/2021 21:29:16 01/16/20 21 01/15/2021 CBC (H/H, RBC, INDIC ES, WBC, PLT) MPV 10.5 fL 7.5-12 .5 normal Not Available [facility] [place] [facility] [address], [place], [address], 01/15/2021 21:29:16 01/16/20 21 01/15/2021 CBC (H/H, RBC, INDIC ES, WBC, PLT) copy(ies) sent to: CENTR AL [facility] IPA BOYE R ACCOU N [address] [phone] Not Available [facility] [address], [place], [address], 01/15/2021 21:29:16 12/05/19 21 12/04/2020 muna brower am No observ ation record ed. BARCODE Not Available 2020 17:20:35 12/26/19 21 12/25/2020 imagi ng/di bryson montes Study ID: [id number] [facility] [address] [place] [phone] Non- Invasi ve Cardio logy Labora torchante Garyt malachi winchester Echoca rdiogr am Final Report Name: FRANKY GAMINO DO Study Date: 2020 08:45 AMBP: 122/72 mmHg 1730 Ryan montes Locati on: LING : 1970 Accoun t Number : [id number] Height : 65 in Age: 50 yrs [...] /getRe port.a sp?Dave dyInst anceUI D= 1.3.46 .76668 9.52.2 .76281 0618.5 667604 .4183. 85113 modali ty=us ITS Report #: [id number] Orderi ng physic neri: Micheal king Other provid ers: Micheal king, Micheal king, , Micheal king, , , dtrister [facility] [address] [place] [address], [address], 01/13/2021 22:05:40 01/02/20 21 01/01/2021 imagi ng/di chellyos joss resul t No observ ation record ed. jtrister Not Available 2020 16:49:15 01/07/20 21 12/25/2020 imagi ng/di agnos tic resul t [facility] [address] [place] [address] [phone] PATIOLGA T: CAIN GAMINO REG REF/ 1730 [...] DT: 2020 TT: 02:28 P Doc #: [id number] cc: MD Nicanor Dorado , SHEELA king M.D. Orderbeth spears physic neri: Other provid ers: Micheal king, Micheal king, , Micheal king, Marcela recinos, Nicanor triana , Micheal king rister [facility] [address] [place] [address], [address], 01/13/2021 22:05:40 01/07/20 21 12/25/2020 exerc ise stres s test No observ ation record ed. aattar Not Available 2020 16:55:03 01/08/20 21 12/25/2020 exerc ise stres s test No observ ation record ed. jtrister Not Available 2020 16:49:15 02/26/20 21 02/25/[address] yandel multi [facility] Depart ment of Radiol ogy [address] [place] [address], [address] [phone] Name: CAIN GAMINO : 1730 Date of Servic e: [birth year] Acct Number : [id number] Order Number : [id number] Locati on: [facility] Report Number : [id number] Servic e: REG REF/ Reques ting Physic neri: Rishi Dean MD Catego ry: NUCLEA R MEDICI NE Exam: MYOCAR D PERF YANDEL MULTI Access ion #: [id number] 2.001S VH Signs/ Sympto ms: CHEST PAIN [...] Attend ing Radiol ogist: Rishi Dean MD 1 Orderi ng physic neri: Ron jones Other provid ers: Ron jones, Ron jones, , Micheal king, , , jtrister [facility] [address] [place] [address], [address], 03/04/2021 16:49:15 03/04/20 21 03/01/2021 imagi ng/di agnos tic resul t [facility] [address] [address] [phone] PATIEN T: CAIN GAMINO REG REF/ 1730 [facility] : Non-In vasive Cardio logy Labora tory [...] DT: 2020 TT: 09:07 A Doc #: [id number] cc: Shaggy Connollyi regan bhatti: Other provid ers: Ron jones, Ron jones, , Micheal Singh r, Ron jones, , jtrister [facility] [address], [address], 04/03/2021 23:56:33 Result Notes None recorded. Problems No Known Problems Procedures Surgical History Date Name Laterality Status Provider Name and Address Organization Details Recorded Time 12/04/2020 ECG completed Manpreet Leiva [address] [place] [address], [phone], [facility], 12/04/2020 16:58:29 Imaging Results Imaging Date Name Status LastModified by Organization Details LastModified Time 12/04/2020 electrocardiogram completed BARCODE Informa tion not available 12/04/2020 17:20:35 12/25/2020 imaging/diagnostic result completed dtrister [facility] [address], [address], 01/13/2021 22:05:40 01/01/2021 imaging/diagnostic result active Information not available 03/04/2021 16:49:15 12/25/2020 imaging/diagnostic result completed dtrister [facility] [address], [address], 01/13/2021 22:05:40 12/25/2020 exercise stress test completed aattar Info rmation not available 02/23/2021 16:55:03 12/25/2020 exercise stress test completed Info rmation not available 03/04/2021 16:49:15 02/25/2021 myocard perf yandel multi completed jtrister [facility] [address], [address], 03/04/2021 16:49:15 03/01/2021 imaging/diagnostic result completed jtrister [facility] [address], [address], 04/03/2021 23:56:33 Procedure Notes None recorded. Medical [...] cm 79 /min 97.9 [degF] 24.8 kg/m2 10541.2 6 g 96 % 96 % Micheal Pederson MD [address] [place], [address], [facility], 16:38:43 Date Recorded Body height Heart rate Body temperature Body mass index (BMI) Body weight Oxygen saturation Oxygen saturation in Arterial blood by Pulse oximetry Systolic blood pressure Diastolic blood pressure Provider Name and Address Organization Details Last Updated DateTime 1 165.1 cm 79 /min 98.2 [degF] 25 kg/m2 44563.8 6 g 96 % 96 % 102 mm[Hg] 68 mm[Hg] Micheal Pederson MD [address] [place], [address], [facility], 1 15:41:28 Date Recorded Body height Systolic blood pressure Diastolic blood pressure Provider Name and Address Organization Details Last Updated DateTime 01/19/2021 165.1 cm 130 mm[Hg] 80 mm[Hg] Micheal Pederson MD [address] [place], [address], [facility], 01/19/2021 17:01:27 Date Recorded Body mass index (BMI) Body weight Body temperature Heart rate Oxygen saturation Oxygen saturation in Arterial blood by Pulse oximetry Provider Name and Address Organization Details Last Updated DateTime 1 25.2 kg/m2 29524.1 7 g 97.4 [degF] 79 /min 96 % 96 % Era Pederson DO [address] [place], [address], [facility], 17:49:52 Date Recorded Body height Heart rate Body mass index (BMI) Body weight Body temperature Systolic blood pressure Diastolic blood pressure Provider Name and Address Organization Details Last Updated DateTime 1 165.1 cm 60 /min 24.8 kg/m2 48929.2 6 g 98 [degF] 138 mm[Hg] 90 mm[Hg] Micheal Pdeerson MD [address] [place], [address], [facility], 1 16:51:08 Date Recorded Body height Body mass index (BMI) Body weight Body temperature Heart rate Oxygen saturation Oxygen saturation in Arterial blood by Pulse oximetry Provider Name and Address Organization Details Last Updated DateTime 1 165.1 cm 25.1 kg/m2 46403.4 5 g 97.9 [degF] 60 /min 97 % 97 % Micheal Pederson MD [address] [place], [address], [facility], 1 16:41:43 Date Recorded Systolic blood pressure Diastolic blood pressure Provider Name and Address Organization Details Last Updated DateTime 04/02/2021 110 mm[Hg] 80 mm[Hg] Alanis Michaud [facility], 04/02/2021 17:15:53 Social History Question Answer Notes LastModified by Organizat ion Details LastModified Time Tobacco Smoking Status Never Smoker Not Available [employer] 04/24/2020 03:10:45 What Is Your Level Of Alcohol Consumption? None [id number] Information not available 04/24/2020 Have You Been To An Area Known To Be High Risk For COVID-19? No Information not available 01/14/2021 Are You Currently Employed? Yes [id number] Information not available 04/24/2020 HAVE YOU HAD [...] Of Your Most Recent Tobacco Screening? 08/07/2017 [id number] Information not available 04/24/2020 How Many Children Do You Have? 2 [id number] Information not available 04/24/2020 Sex: Unknown Functional [...] SNOMED-CT Code Diagnosis ICD10 Code Diagnosis Note [id number] Micheal Pederson MD [address] [address] 04/11/2016 11:00:35 04/11/2016 12:08:08 Abdominal pain 96620552 R10.9 [id number] Micheal Pederson MD [address] [address] 05/02/2016 08:11:28 05/02/2016 08:36:53 Leukopenia 61314132 D72.819 [id number] [facility] [address] [place] [address] 06/15/2016 08:36:45 06/15/2016 09:03:40 Diarrhea 13979447 R19.7 [id number] Shonna Rosales [address] [address] 08/07/2017 15:36:55 08/07/2017 15:56:29 Rhinitis 41936178 J00 Otitis media 36872844 H6 6.91 [id number] Micheal Pederson MD [address] [address] 06/24/2019 14:24:21 06/24/2019 15:26:33 Adult health examination 562610857 Z00.01 Pain in th oracic spine 883421074 M54.89 Left flank pain 98192219 9 R10.9 [id number] Micheal Pederson MD [facility] [address] [place] [address] 08/12/2019 08:19:06 08/12/2019 08:57:22 Chronic back pain 808271541 M54.9 Skin lesion 91009414 L98 .9 [id number] Micheal Pederson MD [address] [address] 12/04/2020 16:46:17 12/04/2020 17:06:20 Benign essential hypertension 1475110 I10 Electrocar diogram abnormal 833471211 R94.31 [id number] JESSICA VACAKETAN [address] [address] 01/01/2021 16:30:48 01/01/2021 16:58:25 Ventricular premature complex 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 Asymptomat ic.Will obtain results for ETT.F/u in 3 months or sooner as needed. [id number] Micheal Pederson MD [address] [address] 01/14/2021 15:21:12 01/14/2021 16:06:46 Coronary arteriosclerosis 46178704 I25.10 [id number] Micheal Pederson MD [address] [address] 01/19/2021 16:47:30 01/19/2021 17:03:59 Coronary arteriosclerosis 68662306 I25.10 [id number] Micheal Pederson MD [address] [address] 03/04/2021 16:07:31 03/04/2021 17:26:13 Atypical chest pain 952224173 R07.89 The following dietary and life style changes are recommende d for you:Eat no more than 30-40 grams of carbohydra marga per day in the form of green vegetables (about 10-12 cups and 2 handful of berries per day.Whole Lemon or whole [place]way per day are good for you.These vegetables [...] Walk 1-3 miles daily,Weig ht bearing exercises. [id number] Micheal Pederson MD [address] [address] 04/02/2021 16:02:03 04/02/2021 17:03:26 Atypical chest pain 448091494 R07.89 The following dietary and life style changes are recommende d for you:Eat no more than 30-40 grams of carbohydra marga per day in the form of green vegetables (about 10-12 cups and 2 handful of berries per day.Whole Lemon or whole [place]way per day are good for you.These vegetables [...] (including diet ),ar tificial sugars, MSG.No chewing gums.[facility] hes:Very small amount of rice, buckwheat or [...] daily,Weig ht bearing exercises. Mixed hyperlipidemia 267 074698 E78.2 Health Concerns Section Related Observation LastModified by Organization Detai ls LastModified Time None Recorded Concern Status LastModified by Organization Details LastModified Time None Recorded Advance Directives Directive None Recorded Payers Encounter Date Sequence Insurance Name Policy Number Policy Martin Covered Member ID Martin Member ID Guarantor Name 01/01/2021 1 [facility] [employer] - TOGETHER (MEDICAID HMO) [id number] Michael Murphy [id number] Michael Murphy 01/14/2021 1 [facility] [employer] - TOGETHER (MEDICAID HMO) [id number] Michael Murphy [id number] Michael Murphy 01/19/2021 1 [facility] [employer] - TOGETHER (MEDICAID HMO) [id number] Michael Murphy [id number] Imchael Murphy 03/04/2021 1 [facility] [employer] - TOGETHER (MEDICAID HMO) [id number] Michael Murphy [id number] Michael Murphy 04/02/2021 1 [facility] [employer] - TOGETHER (MEDICAID HMO) [id number] Michael Murphy [id number] Michael Murphy Notes Date Note Type Note [...] No SOB, dyspnea, edema, dizziness, syncope. JESSICA ann, [facility], 01/01/2021 21:16:06 01/14/2021 text/html There is a histo ry of following medical problems:history of coronary arteriosclerosis; Positive abnormal cardiac evaluation. 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 Micheal Pederson MD [address] [place], [address], [facility], 02/02/2021 11:31:42 03/04/2021 text/html There is a histo ry of following medical problems:pt reports no complaints today; Results of clinical examination and available diagnostic tests were discussed with patient.cardiac testing are normal; Laboratory data are normal as well. Micheal Pederson MD [address] [place], [address], [facility], 03/16/2021 12:34:40 04/02/2021 text/html There is a histo ry of following medical problems:Patient feels well; Results of consultative report, laboratory tests and imaging studies were reviewed and discussed with patient Micheal Pederson MD [address] [place], [address], [facility], 04/13/2021 11:59:39
--- OUTSIDE RECORDS SUMMARY | 2024-09-13 08:45 | XMS_ITS | Clinical Summary ---
Author Organization [facility] Address [address] [place] [address] Care Team Providers Care Male Impersonator Name Role Phone Era Pederson DO Primary Care Provider [phone] Allergies No known active allergies Medications aspirin [...] 75+ series) 2045 Procedures * Due to [place] iZ3D law, this organization might not be sharing negative HIV tests. Procedure Name Priority Date/Time Associated Diagnosis Comments COLONOSCOPY 03/08/2021 from Last 3 Months or Most Recently Relevant to Health Maintenance Results * Due to [place] iZ3D law, this organization might not be sharing [...] Providers: Adam Tong MD (Doctor) Referring MD: rEa Pederson (Referring MD) Requesting Provider: Medicines: Propofol [...] saturations were monitored continuously. The PCF-[id number] OLYMPUS [id number] was introduced through the anus and advanced [...] 11:01 AM 03/08/2021 2:51 PM Care Teams Male Impersonator Relationship Specialty Start Date End Date Era Pederson DO PCP - General 10/22/20
--- OUTSIDE RECORDS SUMMARY | 2024-09-13 08:45 | XMS_ITS | Referral Summary ---
Author Organization [facility] Address [address] [place] [address] Care Team Providers Care Pan Shaker Name Role Phone Era Pederson DO Primary Care Provider [phone] Allergies No known active allergies Medications aspirin [...] to Health Maintenance Results * Due to [facility] law, this organization might not be sharing [...] saturations were monitored continuously. The PCF-H190DL OLYMPUS [id number] was introduced through the anus and advanced [...] Most Recently Relevant to Health Maintenance [place] [address] [address] [place] [address] Advance Directives * Full Code (Latest Code Status on File) Date Activated Date Inactivated Comments 03/08/2021 11:01 AM 03/08/2021 2:51 PM Care Teams Pan Shaker Relationship Specialty Start Date End Date Era Pederson DO PCP - General 10/22/20
[2024-09-13 09:01] LABS: Hematocrit 47.3 % (42.0-52.0); Hemoglobin 15.9 g/dl (14.0-18.0); Mean Corpuscular HGB Conc 33.6 g/dl (31.0-36.0); Mean Corpuscular Hemoglobin 30.2 pg (27.0-33.0); Mean Corpuscular Volume 89.8 fL (80.0-98.0); Mean Platelet Volume 10.2 fL (9.4-12.4); Platelet Count 220 X10*3/uL (160-400); Red Blood Count 5.27 X10*6/uL (4.60-5.80); Red Cell Distribution Width 12.6 % (11.0-16.0); White Blood Count 3.7 X10*3/uL (4.8-10.8)
[2024-09-13 09:35] LABS: Alanine Aminotransferase 27 U/L (0-40); Albumin Level 4.1 g/dL (3.5-5.0); Alkaline Phosphatase 64 U/L (39-117); Anion Gap 7 (12-20); Aspartate Amino Transferase 22 U/L (5-37); Bilirubin Total 0.4 mg/dL (0.0-1.0); Blood Urea Nitrogen 14 mg/dL (9-16); Carbon Dioxide 29 mmol/L (22-29); Chloride 108 mmol/L (96-108); Estimated Glomerular Filt Rate > 60; Glucose Fasting 101 mg/dL (60-99); Potassium 4.3 mmol/L (3.3-5.1); Sodium 140 mmol/L (135-145)
[2024-09-13 09:59] LABS: Prostate Specific Antigen Scr 3.63 ng/mL (<0.05-4.0)
== END 2024-09-13 07:29 | disposition home or self-care (01) ==
LOC: HO.XRAY 07:28
PROVIDERS: PCP Physician Assistant; Visit Provider Internal Medicine Gastroenterology
DX: R07.81 Pleurodynia (principal); Z12.5 Encounter for screening for malignant neoplasm of prostate; Z13.1 Encounter for screening for diabetes mellitus
CPT/HCPCS: 36415; 71100; 80053; 84153; 85027

== ENCOUNTER → 2024-09-13 08:37 | Outpatient (BNV) | payer OTHER, SELFPAY | PROVIDERS: PCP Physician Assistant; Visit Provider Radiology Diagnostic Radiology | DX: R07.81 Pleurodynia (principal) | CPT/HCPCS: 71100 ==

== ENCOUNTER 2024-10-10 08:29 | Outpatient (REF) | payer OTHER, SELFPAY ==
--- NOTE | ~2024-10-10 | US_ITS ---
EXAMINATION: US ABDOMEN LIMITED HISTORY: R10.13 - Epigastric pain TECHNIQUE: Real-time grayscale ultrasound imaging of the right upper quadrant was performed and images were reviewed. COMPARISON: Correlation is made with a CT of the abdomen with contrast dated 04/08/2024. FINDINGS: Liver: The right lobe of the liver measures 13.2 cm in size. The left lobe of the liver measures 10.2 cm in size. The liver demonstrates normal homogeneous echotexture. No focal mass or intrahepatic biliary ductal dilatation is identified. There is normal hepatopedal flow in the portal vein. Gallbladder and biliary tree: The gallbladder is unremarkable, without evidence of calculi, wall thickening, or pericholecystic fluid. There is no sonographic Warren sign. The common bile duct is normal in caliber measuring 3 mm. Right Kidney: The right kidney measures 9.4 cm in length. The right kidney is unremarkable, without evidence of masses, hydronephrosis, or calculi. Pancreas: The pancreatic head, neck, and body are unremarkable. The pancreatic tail is obscured by bowel gas. Abdominal aorta and inferior vena cava: The visualized portions of the abdominal aorta and inferior vena cava are normal in caliber. There is no free fluid in the right upper quadrant. US/US abdomen limited IMPRESSION: Unremarkable right upper quadrant ultrasound. Electronically signed by: Daryn Garcia MD 10/10/2024 09:21 AM EDT
--- OUTSIDE RECORDS SUMMARY | 2024-10-10 08:37 | XMS_ITS | Clinical Summary ---
Author Organization [facility] Address [address] [facility] [address] [place] [address] Care Team Providers Care Tax Collection Coordinator Name Role Phone Unavailable Primary Care Provider Unavailabl e Encounters Date Type Department Care Team Description 07/25/2024 Community Care Management [facility] MEDICINE [address] [place] [address] [facility] Physician [place] MD from Last 3 [...]
--- OUTSIDE RECORDS SUMMARY | 2024-10-10 08:37 | XMS_ITS | Clinical Summary ---
Author Organization [facility] Address [address] [place] [address] Care Team Providers Care Habilitation Worker Name Role Phone Era Pederson DO Primary Care Provider [phone] Allergies No known active allergies Medications aspirin [...] 75+ series) 2045 Procedures * Due to [place] [employer] law, this organization might not be sharing negative HIV tests. Procedure Name Priority Date/Time Associated Diagnosis Comments COLONOSCOPY 03/08/2021 from Last 3 Months or Most Recently Relevant to Health Maintenance Results * Due to [place] [employer] law, this organization might not be sharing [...] saturations were monitored continuously. The PCF-H190DL OLYMPUS [id number] was introduced through the anus and advanced [...] 11:01 AM 03/08/2021 2:51 PM Care Teams Habilitation Worker Relationship Specialty Start Date End Date Era Pederson DO PCP - General 10/22/20
--- OUTSIDE RECORDS SUMMARY | 2024-10-10 08:37 | XMS_ITS | Referral Summary ---
Author Organization [facility] Address [address] [place] [address] Care Team Providers Care Electrical Wiring Lineman Name Role Phone Era Pederson DO Primary Care Provider [phone] Allergies No known active allergies Medications [...] Not on file Procedures * Due to [place] state law, this organization might not be sharing negative HIV tests. Procedure Name Priority Date/Time Associated Diagnosis Comments COLONOSCOPY 03/08/2021 from Last 3 Months or Most Recently Relevant to Health Maintenance Results * Due to [facility] law, this organization might not be [...] saturations were monitored continuously. The PCF-H190DL OLYMPUS [id number] was introduced through the anus and advanced [...] Most Recently Relevant to Health Maintenance [place] [address] [place] [address] [place] [address] Advance Directives * Full Code (Latest Code Status on File) Date Activated Date Inactivated Comments 03/08/2021 11:01 AM 03/08/2021 2:51 PM Care Teams Electrical Wiring Lineman Relationship Specialty Start Date End Date Era Pederson DO PCP - General 10/22/20
--- OUTSIDE RECORDS SUMMARY | 2024-10-10 08:37 | XMS_ITS | Encounter Summary ---
Author Organization [facility] Address [address] [facility] [address] [place] [address] Care Team Providers Care Supervisor Toy Assembly Name Role Phone Unavailable Primary Care Provider Unavailabl e Encounter Details Date Type Department Care Team (Late st Contact Info) Description 07/25/2024 Community Care Management [facility] MEDICINE [address] [place] [address] [facility] Link, PhysicianMD Social History Tobacco [...]
== END 2024-10-10 08:30 | disposition home or self-care (01) ==
LOC: HO.US 08:29
PROVIDERS: PCP Physician Assistant; Visit Provider Physician Assistant
DX: R10.13 Epigastric pain (principal)
CPT/HCPCS: 76705

== ENCOUNTER → 2024-10-10 08:31 | Outpatient (BNV) | payer OTHER, SELFPAY | PROVIDERS: PCP Physician Assistant; Visit Provider Radiology Diagnostic Radiology | DX: R10.13 Epigastric pain (principal) | CPT/HCPCS: 76705 ==

== ENCOUNTER 2025-03-03 10:48 | Outpatient (AMB) | payer OTHER, SELFPAY ==
--- NOTE | 2025-03-03 10:54 | MHC.PC.OV ---
Vital Signs 03/03/25 10:55 Height 5 ft 5 in Weight 154 lb BMI 25.6 BP 118/72 Blood Pressure Location Lt brachial Position Sitting Pulse 61 Pulse Source Pulse Oximeter Pulse Oximetry (%) 98 Oxygen Delivery Method Room Air Intake Visit Reasons: 6 month follow up Pumper Hand Required: No Accompanied by: Self / Same As Patient Allergies No Known Allergies Allergy (Verified 03/03/25 11:04) Medication List - Last Reconciled 03/03/25 by Bacilio Benoit PA-C diclofenac sodium 1% (Voltaren Arthritis Pain) 2 grams topical QID 30 days Tobacco use date assessed: 03/03/25 Dental Screening Dental Screen Date: 03/03/25 Did you have a dental visit in the last 12 months?: Yes Did you have a dental problem in the last 6 months where you did not have access to dental care?: No Was dental information given to patient?: Patient has dentist HPI 6 month follow up HPI Details Patient is a 54-year-old male here today for follow-up visit Horacio--> reports he intermittently has upper abdominal pain. He attributes this to stress. She did get a CT of his abdomen last year which did not show any significant masses or intra-abdominal pathology. He denies having any constipation, diarrhea or GERD like symptoms. Vaccine : declines flu vac, needs up-to-date tetanus Colonoscopy : Has had 2 colonoscopies thus far due to his family history of colon cancer. 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 1. Little interest or pleasure in doing things: not at all 2. Feeling down, depressed, or hopeless: not at all 3. Trouble falling or staying asleep, or sleeping too much: not at all 4. Feeling tired or having little energy: not at all 5. Poor appetite or overeating: not at all 6. Feeling bad about yourself - or that you are a failure or have let yourself or your family down: not at all 7. Trouble concentrating on things, such as reading the newspaper or watching television: not at all 8. Moving or speaking so slowly that other people could have noticed. Or the opposite - being so fidgety or restless that you have been moving around a lot more than usual: not at all 9. Thoughts that you would be better off or of hurting yourself in some way: not at all Total score: 0 Depression Screening Interpretation: Negative Depression Screening Done: Yes 95460 - PHQ-9 Billing: Yes Source: Developed by Drs. Daryn Lewis, Mignon Lees, Tylor Sin and colleagues, with an educational chad from [employer]. Thrive Questionnaire Date Thrive assessed: 03/03/25 I am a: Patient What is your living situation today?: I have a steady place to live Within the past 12 months, did the food you bought not last and you didn't have the money to get more?: I choose not to answer this question Within the past 12 months, did you worry whether your food would run out before you got money to buy more?: Never true Do you have trouble paying for medicines?: No Do you have trouble getting transportation to medical appointments?: No Do you have trouble paying your heating and electricity bill?: No Do you have trouble taking care of your child, family member or friend?: Yes Do you have trouble with day-to-day activities such as bathing, preparing meals, shopping, managing finances, etc.?: No Are you currently unemployed and looking for a job?: No Are you interested in more education?: Yes Please select the resources that you would like help with: None Currently or been in a relationship where the following occur: No concerns reported THRIVE Score: 0 AUDIT C Alcohol Use Questionnaire (AUDIT-C) 1. How often do you have a drink containing alcohol?: Never 3. How often do you have six or more drinks on one occasion?: Never Total Score: 0 CARROLL-7 AMB Questionnaire CARROLL-7 Date CARROLL - 7 assessed: 03/03/25 Feeling nervous, anxious, or on edge: 0 = Not at all Not being able to stop or control worryin = Not at all Worrying too much about different things: 0 = Not at all Trouble relaxin = Not at all Being so restless that it is hard to sit still: 0 = Not at all Becoming easily annoyed or irritable: 0 = Not at all Feeling afraid as if something awful might happen: 0 = Not at all Total CARROLL-7 score (0-4 normal; 5-9 mild; 10-14 moderate; 15-21 severe): 0 Source: Developed by Drs. Daryn Lewis, Mignon Lees, Tylor Sin and colleagues, with an educational chad from [employer]. CARROLL-7 Assessment Billing CARROLL-7 Assessment Tool: CARROLL-7 Assessment 07211 Review of Systems Const Denies headache(s) Eyes Denies loss of vision ENT Denies vertigo, Denies dizziness, Denies headache(s) and Denies sore throat Card Denies chest pain, Denies leg edema and Denies lightheadedness Resp Denies cough, Denies hemoptysis and Denies wheezing GI Denies abdominal pain, Denies melena, Denies constipation, Denies diarrhea and Denies vomiting Denies dysuria, Denies urinary frequency and Denies urinary urgency Musc Denies arthralgias, Denies joint swelling, Denies numbness and Denies tingling Neuro Denies Abnormal speech present, Denies behavioral changes, Denies vertigo, Denies dizziness, Denies headache(s), Denies loss of vision, Denies memory loss, Denies numbness and Denies tingling Psych Denies anxiety, Denies behavioral changes, Denies depression, Denies memory loss and Denies panic attacks Rich/Lymph Denies easy bleeding and Denies easy bruising Aller/Immun Denies wheezing Physical exam (Primary Care) Vital Signs: Last Vital Signs Pulse 61 03/03/25 10:55 BP 118/72 03/03/25 10:55 Pulse Ox 98 03/03/25 10:55 Oxygen Delivery Method Room Air 03/03/25 10:55 BMI result Body Mass Index 25.6 Tobacco/Smoking Status: Tobacco use Status Tobacco use date assessed 03/03/25 03/03/25 10:59 Patient Tobacco Use Status Never used Tobacco 03/03/25 10:59 e-Cigarette/Vaping Use Never Used 03/03/25 10:59 PHQ-9: PHQ-9 Score PHQ-9: Total score 0 03/03/25 11:06 Depression Screening Interpretation: Negative Thrive Assessment: Date of Thrive Assessment Date Thrive assessed 03/03/25 03/03/25 10:59 Currently or been in a relationship where the following occur: No concerns reported Const General: healthy appearing, no acute distress, alert and awake Nutritional Appearance: well nourished Orientation/consciousness: oriented to person, oriented to place and oriented to time HENMT Ears: TM's normal bilaterally General nose exam: Normal nasal mucous membranes and turbinates present Eyes Conjunctivae: conjunctivae normal Sclerae: sclerae normal Pupils: Equal, round and reactive pupils present Neck Neck: Yes no lymphadenopathy and Yes no JVD Thyroid: Thyroid normal Carotids: no bruits Resp Effort & Inspection: normal respiratory effort and not tachypneic Auscultation: no crackles, no rales, no rhonchi and no wheezes Cardio Rate: regular rate Rhythm: regular rhythm Heart sounds: no murmurs and normal S1 and S2 GI Palpation (GI): Soft to palpation, nontender, no hepatomegaly and no splenomegaly Auscultation: normal bowel sounds Skin General skin exam: no rashes or lesions noted and dry skin Neuro General: oriented to person, oriented to place and oriented to time Cranial nerves: Yes Equal, round and reactive pupils present Speech: No Abnormal speech present Gait exam (Neuro): Normal gait present Motor exam (neuro): no tremor noted Extrem Right upper extremity: full ROM Left upper extremity: full ROM Right lower extremity: full ROM; no edema Left lower extremity: full ROM; no edema Psych Mental Status: mental status grossly normal Speech and movement: Normal speech and movement present Affect: normal affect Attitude: cooperative Thought process: Normal thought process present Coding Level of Care Code Est Pt Level 4 (57757) Diagnoses Elevated fasting blood sugar R73.01 Screening for diabetes mellitus (DM) Z13.1 Family history of colon cancer in father Z80.0 Additional Codes CARROLL-7 Assessment Billing - CARROLL-7 Assessment Tool: CARROLL-7 Assessment 48190 ([id number]) PHQ-9 - 35348 - PHQ-9 Billing: Yes ([id number]) Assessment & Plan Assessment & Plan (1) Elevated fasting blood sugar: Code(s): R73.01 - Impaired fasting glucose Category: Medical Plan: Noted elevated fasting blood sugar at 101. Will continue to follow. Advised on low sugar and carbohydrate diet. (2) Screening for diabetes mellitus (DM): Code(s): Z13.1 - Encounter for screening for diabetes mellitus Category: Medical Plan: As per HPI (3) Family history of colon cancer in father: Code(s): Z80.0 - Family history of malignant neoplasm of digestive organs Category: Medical Plan: Patient has followed up with Gastroenterology. Unclear when his last colonoscopy was done in [place] Orders: Orders Prostate Specific Antigen Scr Today Z12.5 - Encounter for screening for malignant neoplasm of prostate, Z13.1 - Encounter for screening for diabetes mellitus Complete Blood Count no Diff Today Z13.1 - Encounter for screening for diabetes mellitus Comprehensive [place]. Panel Fast Today Z13.1 - Encounter for screening for diabetes mellitus Hemoglobin A1c Today R73.01 - Impaired fasting glucose
[2025-03-03 10:55] VITALS: BP 118/72; PULSE 61; O2SAT 98; BMI 25.6
--- OUTSIDE RECORDS SUMMARY | 2025-03-03 12:02 | XMS_ITS | Clinical Summary ---
Author Organization [employer] Address [address] [facility] [address] [place] [address] Care Team Providers Care Lifeline Representatives Name Role Phone Unavailable Primary Care Provider Unavailabl e Social History Tobacco Use Types Packs/Day Years [...] FIT DNA/Cologuard 1970 FIT 1970 FOBT 1970 Lipid Panel 1970 Sigmoidoscopy 1970 Disability Screening 1970 Alcohol/Substance Use Screening 1982 Tobacco Screening 1982 DTaP/Tdap/Td Vaccines (1 - Tdap) 1989 Hepatitis B Vaccines (1 of 3 - 19+ 3-dose series) 1989 Pneumococcal Vaccine: 50+ Ye ars (1 of 1 - PCV) 2020 Zoster Vaccines (1 of 2) 2020 COVID-19 Vaccine ( - 2023-2 5 season) 2024 Influenza Vaccine (#1) 2025 RSV Patients and Pa tients Aged 60 [...] patient's age to complete this topic Meningococcal B Vaccine Aged Out No l onger eligible based on patient's age to complete this topic Meningococcal Vaccine Aged Out No jluisa corinne eligible based on patient's age to complete this topic RSV under 20 months Aged Out No longe r eligible based on patient's age to complete this topic Rotavirus Vaccines Aged Out No longer eligible based on patient's age to complete this topic
--- OUTSIDE RECORDS SUMMARY | 2025-03-03 12:02 | XMS_ITS | Clinical Summary ---
Author Organization [facility] Address [address] [place] [address] Care Team Providers Care Counter Control Operator Name Role Phone Era Pederson DO Primary Care Provider [phone] Allergies No known active allergies Medications aspirin [...] 66 03/08/2021 12:10 PM EDT Temperature 36.2 C (97.1 F) 03/08/2021 11:53 AM EDT Respiratory Rate 22 03/08/2021 12:10 PM EDT [...] Vaccine (1 - 2023-2 5 season) 2024 Alcohol/Substance Use Screening 07/10/2024 Influenza Vaccine (#1) 2025 Colonoscopy 03/08/2026 03/08/2021, 02/09, 03/08/2021, Additional history exists RSV Vaccine (60+ years old a nd patients) (1 - 1-dose 75+ series) 2045 Procedures * Due to [place] [employer] law, this organization might not be sharing negative HIV tests. Procedure Name Priority Date/Time Associated Diagnosis Comments COLONOSCOPY 03/08/2021 from Last 3 Months or Most Recently Relevant to Health Maintenance Results * Due to [place] [employer] law, this organization might not be sharing [...] saturations were monitored continuously. The PCF-H190DL OLYMPUS [id number] was introduced through the anus and advanced [...] Most Recently Relevant to Health Maintenance Insurance * Guarantor: Michael Murphy Account Type Relation to Patient Date of Phone Billing Address Personal/Family Self [address] [place] [address] [place] * Guarantor: MurphyMichael sanchez Account Type Relation to Patient Date of Phone Billing Address Auto Liability Self [address] [place] [address] [employer] Advance Directives * Full Code (Latest Code Status on File) Date Activated Date Inactivated Comments 03/08/2021 11:01 AM 03/08/2021 2:51 PM Care Teams Counter Control Operator Relationship Specialty Start Date End Date Era Pederson DO PCP - General 10/22/20
== END 2025-03-03 11:25 | disposition home or self-care (01) ==
LOC: HO.HMCH 10:49
PROVIDERS: Visit Provider Physician Assistant
DX: R73.01 Impaired fasting glucose (principal); Z13.1 Encounter for screening for diabetes mellitus; Z80.0 Family history of malignant neoplasm of digestive organs

== ENCOUNTER → 2025-03-03 10:48 | Outpatient (BNVA) | payer OTHER, SELFPAY | PROVIDERS: Visit Provider Physician Assistant | DX: R73.01 Impaired fasting glucose (principal); Z80.0 Family history of malignant neoplasm of digestive organs | CPT/HCPCS: 96127 ==